=== PATIENT | male | born 1955 | race Caucasian/White ===

== ENCOUNTER → 2018-05-15 | Outpatient (CLI) | payer MEDICARE ==
[2018-05-15 09:56] LABS: Basophils % (A) 1 %; Eosinophils # (A) 0.4 k/uL (0-0.7); Eosinophils % (A) 7 %; HCT 49.8 % (39.0-53.0); HGB 17.1 gm/dL (13.0-17.5); Lymphocytes # (A) 1.5 k/uL (1.0-4.8); Lymphocytes % (A) 27 %; MCH 30.6 pg (25.0-35.0); MCHC 34.4 g/dL (31.0-37.0); MCV 89.1 fL (80.0-100.0); Mean Platelet Volume 6.6; Monocytes # (A) 0.4 k/uL (0-1.0); Monocytes % (A) 7 %; Neutrophils # (A) 3.2 k/uL (1.3-7.7); Neutrophils % (A) 57 %; Platelet Count 272 k/uL (150-450); RBC 5.59 m/uL (4.30-5.90); WBC 5.6 k/uL (3.8-10.6)
[2018-05-15 17:04] LABS: Albumin 4.6 g/dL (3.80-4.90); Albumin/Globulin Ratio 1.92 (1.20-2.10); Anion Gap 6.6 mmol/L (4.00-12.00); Calcium 9.6 mg/dL (8.7-10.3); Carbon Dioxide 29.4 mmol/L (21.6-31.8); Globulin 2.4 g/dL (2.1-3.7); LDL Cholesterol,Calculated 130.4 mg/dL (0.0-131.0); Potassium 4.8 mmol/L (3.5-5.5); Total Bilirubin 0.9 mg/dL (0.3-1.2); VLDL Calculation 34.6 mg/dL (5.00-40.00)
[2018-05-15 17:11] LABS: T4, Free (Free Thyroxine) 1.2 ng/dL (0.80-1.80)
== END | disposition home or self-care (01) ==
LOC: LABWHC1 09:26
PROVIDERS: ATTEND Nurse Practitioner Family
DX: Z00.00 Encounter for general adult medical examination without abnormal findings (principal); Z12.5 Encounter for screening for malignant neoplasm of prostate; Z11.59 Encounter for screening for other viral diseases
CPT/HCPCS: 36415; 80053; 80061; 84153; 84439; 84443; 85025; 86803

== ENCOUNTER → 2020-03-21 | Outpatient (CLI) | payer BC ==
[2020-03-21 22:45] LABS: % Iron Saturation 30.75 (15.00-50.00); C Reactive Protein <0.4 mg/dL (0.0-0.8); Iron 111 ug/dL (65-175); Rheumatoid Factor, Qnt 6 IU/mL (0-15); Total Iron Binding Capacity 361 ug/dL (228-460)
[2020-03-21 22:56] LABS: Uric Acid 5.5 mg/dL (3.7-8.7)
[2020-03-22 00:01] LABS: Folate, Serum 21.1 ng/mL
[2020-03-22 01:01] LABS: Hemoglobin A1C 5.4 % (4.0-6.0)
[2020-03-22 06:14] LABS: Thyroid Peroxidase Antibodies 39.8 U/mL (0.0-60.0)
== END | disposition home or self-care (01) ==
LOC: LABWHC1 09:38
PROVIDERS: ATTEND Family Medicine
DX: Z13.1 Encounter for screening for diabetes mellitus (principal); M25.50 Pain in unspecified joint; R53.83 Other fatigue; E55.9 Vitamin D deficiency, unspecified
CPT/HCPCS: 36415; 82306; 82607; 82728; 82746; 83036; 83540; 83550; 84432; 84550; 85652; 86140; 86376; 86431

== ENCOUNTER → 2020-03-21 | Outpatient (CLI) | payer BC, MEDICARE ==
--- NOTE | 2020-03-21 11:40 | MR ---
MR brain without contrast HISTORY: R 51, headache Multi planar multisequence imaging through the brain No comparisons There is no restricted diffusion. There is no hemorrhage or hydrocephalus. Corpus callosum, pituitary , cervical medullary junction, cerebellopontine angles are normal. Orbits show a symmetric appearance . Brain signal is essentially normal, 3-5 nonspecific foci of hyperintensity on inversion recovery T2 -weighted sequences in the frontal lobes questionable clinical significance. There are normal vascula r flow voids. There is extensive inflammatory change in the frontal sinus, ethmoid air cells, sphenoi d sinus, maxillary sinuses. Mild inflammatory change present in the mastoid air cells on the left. IMPRESSION: Pansinusitis. Nonspecific white matter demyelination could be related to hypertension, mi graine headaches, chronic small vessel ischemic changes.
--- NOTE | 2020-03-21 11:49 | MR ---
EXAMINATION TYPE: MR angio head wo con DATE OF EXAM: 03/21/2020 COMPARISON: EXAMINATION TYPE: MR angio head wo con DATE OF EXAM: 03/21/2020 COMPARISON: MRI brain same date HISTORY: Headache TECHNIQUE: Time of flight images focusing on the [place] were performed without contrast. FINDINGS: Anterior and posterior circulation are patent. There is no evident aneurysm, dissection, or embolus. IMPRESSION: Normal MRA brain
== END | disposition home or self-care (01) ==
LOC: RADMRIMAIN 08:38
PROVIDERS: ATTEND Family Medicine
DX: R90.82 White matter disease, unspecified (principal); J32.4 Chronic pansinusitis; R51 Headache
CPT/HCPCS: 70544; 70551

== ENCOUNTER → 2020-04-09 | Outpatient (CLI) | payer OTHER ==
--- NOTE | 2020-04-19 05:21 | MR ---
EXAMINATION TYPE: MR ankle RT wo con DATE OF EXAM: 04/09/2020 COMPARISON: 04/02/2019 HISTORY: Aftercare following surgery, rt ankle bone spur, instability, osteochondritis Multiplanar multiecho imaging of the right ankle was performed without contrast. There is intact Achilles tendon. Plantar fascia appears normal. Medial and lateral flexor tendons of the ankle appear intact. There is small ankle joint effusion. There is 7 mm focus of increased fluid signal in the medial dome of the talus. There is also a small area of slight increased signal in the lateral dome of the talus. I see no fracture line. There is no evidence of soft tissue mass. There is evidence of previous surgery with screws at the distal fibula. There is narrowing of the anterior an kle joint. There is spurring of the anterior and posterior malleolus. Collateral ligaments are intact . IMPRESSION: There is some osteoarthritic narrowing of the ankle joint with degenerative cyst formation in the med ial dome of the talus. No fracture line seen. Small area of bone bruise and edema in the lateral dome of the talus. There is increase in the degenerative changes in the dome of the talus compared to old exam. There is ankle joint effusion slightly improved compared to old exam. Osteoarthritic narrowing of the ankle j oint space increased compared to old exam.
== END | disposition home or self-care (01) ==
LOC: RADMRIMAIN 06:44
PROVIDERS: ATTEND Orthopaedic Surgery Foot and Ankle Surgery
DX: M19.071 Primary osteoarthritis, right ankle and foot (principal); M93.271 Osteochondritis dissecans, right ankle and joints of right foot; Z47.89 Encounter for other orthopedic aftercare

== ENCOUNTER → 2021-10-07 | Outpatient (CLI) | payer BC ==
--- NOTE | 2021-10-07 10:08 | P.STRESS ---
- Stress Test Note Stress Test Results/Findings: Exam Performed: stress echo exercise Exam Date: 10/07/21 Reason for Exam: Chest tightness Height: 5 ft 10 in Weight: 77.111 kg Protocol: Angus Stage: IV Duration of Exercise: 10 min Resting Heart Rate: 65 Resting Blood Pressure: 110/64 Maximum Achieved Heart Rate: 157 Maximum Achieved Blood Pressure: 161/84 85% PMHR: 133 100% PMHR: 156 METS: Technologist Comment: Stress Test Results/Findings: This is a 66-year-old male being evaluated for cardiac status. Patient has history of chest tightness, palpitations, family history and also smoking history. Stress data: Baseline EKG showed sinus rhythm with normal VT interval and QRS duration. Blood pressure at rest is 110/64 with pulse rate of 65. Patient walked on the Angus protocol for 10 minutes achieving a maximum rate of 157 with a blood pressure 160/84. EKGs taken during and after exercise did not reveal any significant changes from the baseline. Patient did not experience any chest pain. Echo data: Baseline echo images show normal wall motion and thickening. Exercise echo images showed augmentation of wall motion and thickening in all the segments. Final impression: #1. Negative stress test #2. Negative stress echo
--- NOTE | 2021-10-09 08:39 | ECHOS ---
Stress Test Results/Findings: Exam Performed: stress echo exercise Exam Date: 10/07/21 Reason for Exam: Chest tightness Height: 5 ft 10 in Weight: 77.111 kg Protocol: Angus Stage: IV Duration of Exercise: 10 min Resting Heart Rate: 65 Resting Blood Pressure: 110/64 Maximum Achieved Heart Rate: 157 Maximum Achieved Blood Pressure: 161/84 85% PMHR: 133 100% PMHR: 156 METS: Technologist Comment: Stress Test Results/Findings: This is a 66-year-old male being evaluated for cardiac status. Patient has history of chest tightness, palpitations, family history and also smoking history. Stress data: Baseline EKG showed sinus rhythm with normal [place] interval and QRS duration. Blood pressure at rest is 110/64 with pulse rate of 65. Patient walked on the Angus protocol for 10 minutes achieving a maximum rate of 157 with a blood pressure 160/84. EKGs taken during and after exercise did not reveal any significant changes from the baseline. Patient did not experience any chest pain. Echo data: Baseline echo images show normal wall motion and thickening. Exercise echo images showed augmentation of wall motion and thickening in all the segments. Final impression: #1. Negative stress test #2. Negative stress echo MTDD
== END | disposition home or self-care (01) ==
LOC: RADNMMAIN 08:47
PROVIDERS: ATTEND Family Medicine
DX: R07.9 Chest pain, unspecified (principal)
CPT/HCPCS: 93351

== ENCOUNTER 2024-08-08 15:19 | Emergency (ER) | payer BC ==
--- NOTE | 2024-08-08 15:53 | ED ---
General Adult HPI - General Source: patient Mode of arrival: ambulatory Limitations: no limitations <Teresa Su - Last Filed: 08/08/24 15:51> - History of Present Illness Onset/Timin -: days(s) Consistency: constant Improves with: none Worsens with: none Associated Symptoms: cough, shortness of breath, weakness <Giovany Corrigan - Last Filed: 08/21/24 07:41> - General Stated complaint: flu+ 2 days ago Time Seen by Provider: 08/08/24 15:52 - History of Present Illness Initial comments: 69-year-old male presenting with chief complaint of dyspnea. Patient has been short of breath for about 5 days. Diagnosed with the flu 2 days ago. States that he feels like he cannot get a deep breath in. No chest pain. (Teresa Su) - Related Data Home Medications Medication Instructions Recorded Confirmed Albuterol Nebulized [Ventolin 2.5 mg INHALATION RT-Q4H PRN 08/08/24 08/10/24 Nebulized] Albuterol Sulfate [Albuterol 2 puff INHALATION RT-QID PRN 08/08/24 08/10/24 Sulfate Hfa] Fluticasone Propion/Salmeterol 1 puff INHALATION RT-BID 08/08/24 08/10/24 [Advair 250-50 Diskus] Fluticasone/Umeclidin/Vilanter 1 puff INHALATION RT-DAILY 08/10/24 08/10/24 [Trelegy Ellipta 200-62.5-25] Previous Rx's Medication Instructions Recorded predniSONE See Taper PO DAILY #30 tab 08/18/24 Allergies Allergy/AdvReac Type Severity Reaction Status Date / Time tobramycin Allergy Rash/Hives Verified 08/10/24 10:10 Review of Systems ROS Other: All systems not noted in ROS Statement are negative. <Teresa Su - Last Filed: 08/08/24 15:51> ROS Other: All systems not noted in ROS Statement are negative. <Giovany Corrigan - Last Filed: 08/21/24 07:41> ROS Statement: Those systems with pertinent positive or pertinent negative responses have been documented in the HPI. Past Medical History Past Medical History: Asthma, GERD/Reflux Additional Past Medical History / Comment(s): ARTHRITIS,"HEADACHES", SHINGLES 5 YEARS AGO,HEMORRHOIDS, HAD PNE VACINE LESS THEN 5 YEARS AGO NOT SURE OF DATE History of Any Multi-Drug Resistant Organisms: None Reported Past Surgical History: Adenoidectomy, Tonsillectomy Additional Past Surgical History / Comment(s): X4 SINUS SX, BLEPHEROPLASTY Past Anesthesia/Blood Transfusion Reactions: No Reported Reaction Past Psychological History: No Psychological Hx Reported Past Alcohol Use History: Rare Additional Past Alcohol Use History / Comment(s): SMOKE FROM AGE 17 TO AGE 19 Past Drug Use History: None Reported - Past Family History Father Family Medical History: Blood Disorder Additional Family Medical History / Comment(s): HEMOCHROMATOSIS <Teresa Su - Last Filed: 08/08/24 15:51> General Exam <Teresa Su - Last Filed: 08/08/24 15:51> Limitations: no limitations General appearance: alert, in no apparent distress Head exam: Present: atraumatic, normocephalic Eye exam: Present: normal appearance. Absent: scleral icterus, conjunctival injection ENT exam: Present: normal oropharynx, mucous membranes dry Neck exam: Present: normal inspection Respiratory exam: Present: wheezes, rales (Left base). Absent: respiratory distress, rhonchi, stridor, accessory muscle use Cardiovascular Exam: Present: regular rate, normal rhythm, normal heart sounds. Absent: systolic murmur, diastolic murmur, rubs, gallop GI/Abdominal exam: Present: soft. Absent: distended, tenderness, guarding, rebound, rigid, mass Extremities exam: Present: normal inspection, normal capillary refill. Absent: pedal edema, calf tenderness Back exam: Present: normal inspection. Absent: CVA tenderness (R), CVA tenderness (L) Neurological exam: Present: alert Skin exam: Present: warm, dry, intact, normal color. Absent: rash <Giovany Corrigan - Last Filed: 08/21/24 07:41> - General Exam Comments Initial Comments: Visual Physical Exam Vital signs reviewed General: Well-appearing, nontoxic, no acute distress. Head: Normocephalic, atraumatic Eyes: PERRLA, EOMI ENT: Airway patent Chest: Nonlabored breathing Skin: No visual rash, normal skin tone Neuro: Alert and oriented 3 Musculoskeletal: No gross abnormalities (Teresa Su) Course Vital Signs 08/08/24 08/08/24 08/08/24 15:52 16:17 17:39 Temperature 99.7 F H Pulse Rate 101 H 92 Respiratory 20 Rate Blood Pressure 137/69 O2 Sat by Pulse 91 L 94 L Oximetry 08/08/24 08/08/24 08/08/24 17:49 20:00 20:07 Temperature Pulse Rate 96 92 92 Respiratory 18 Rate Blood Pressure 119/76 O2 Sat by Pulse 98 Oximetry 08/08/24 08/08/24 20:16 22:20 Temperature Pulse Rate 88 89 Respiratory 18 Rate Blood Pressure 115/73 O2 Sat by Pulse 95 Oximetry EKG Findings - EKG Results: EKG: interpreted by ERMD, sinus rhythm (Rate 91 bpm), normal axis, normal QRS - Blocks, [place], Hypertrophy, ST Abn: Repolarization changes or abnormalities: nonspecific abnormality, ST segment, and/or T wave <Giovany Corrigan - Last Filed: 08/21/24 07:41> Medical Decision Making <Teresa Su - Last Filed: 08/08/24 15:51> - Lab Data Result diagrams: 08/08/24 16:11 08/08/24 16:11 <Giovany Corrigan - Last Filed: 08/21/24 07:41> - Medical Decision Making I performed the quick note portion of this visit, electronically signed Teresa Su PA-C (Teresa Su) The patient had chest x-ray that I interpreted as showing possible small infiltrate, no pneumothorax or congestive heart failure Was pt. sent in by a medical professional or institution ([facility], GRAPHIC DESIGN SPECIALIST, urgent care, hospital, or retirement...) When possible be specific @ -[No] Did you speak to anyone other than the patient for history (EMS, parent, family, police, friend...)? What history was obtained from this source @ -[No] Did you review nursing and triage notes (agree or disagree)? Why? @ -[I reviewed and agree with nursing and triage notes] Were old charts reviewed (outside hosp., previous admission, EMS record, old EKG, old radiological studies, urgent care reports/EKG's, retirement records)? Report findings @ -[No old charts were reviewed] Differential Diagnosis (chest pain, altered mental status, abdominal pain women, abdominal pain men, vaginal bleeding, weakness, fever, dyspnea, syncope, headache, dizziness, GI bleed, back pain, seizure, CVA, palpatations, mental health, musculoskeletal)? @ -[Differential Dyspnea: Coronary syndrome, arrhythmia, tamponade, asthma, COPD, pulmonary embolism, pneumonia, pneumothorax, pulmonary effusion, anaphylaxis, diabetic ketoacidosis, flailed chest, pulmonary contusion, diaphragmatic rupture, anemia, neuromuscular, this is not meant to be an all-inclusive list. EKG interpreted by me (3pts min.). @ -[I interpreted as above] X-rays interpreted by me (1pt min.). @ -[None done] CT interpreted by me (1pt min.). @ -[None done] U/S interpreted by me (1pt. min.). @ -[None done] What testing was considered but not performed or refused? (CT, X-rays, U/S, labs)? Why? @ -[None] What meds were considered but not given or refused? Why? @ -[None] Did you discuss the management of the patient with other professionals (professionals i.e. , PA, GRAPHIC DESIGN SPECIALIST, lab, RT, psych nurse, social science manager, shredding specialist, teacher, global chief experience officer, transplant case manager)? Give summary @ -[No] Was smoking cessation discussed for >3mins.? @ -[No] Was critical care preformed (if so, how long)? @ -[No] Were there social determinants of health that impacted care today? How? (Homelessness, low income, unemployed, alcoholism, drug addiction, transportation, low edu. Level, literacy, decrease access to med. care, senior care, rehab)? @ -[No] Was there de-escalation of care discussed even if they declined (Discuss DNR or withdrawal of care, Hospice)? DNR status @ -[No] What co-morbidities impacted this encounter? (DM, HTN, Smoking, COPD, CAD, Cancer, CVA, ARF, Chemo, Hep., AIDS, mental health diagnosis, sleep apnea, morbid obesity)? @ -[Eval asthma Was patient admitted / discharged? Hospital course, mention meds given and route, prescriptions, significant lab abnormalities, going to OR and other pertinent info. @ -[Patient is a 69-year-old man with history of asthma was diagnosed with influenza approximately 2 days ago and states he was feeling worse. On evaluati on patient suspected to have small pneumonia though probably viral in nature patient given course of antibiotics given his underlying asthma. Patient given multiple treatments and was offered admission but states he is feeling better and will try outpatient course. Discussed appropriate further care and follow- up as well as return parameters. Undiagnosed new problem with uncertain prognosis? @ -[No] Drug Therapy requiring intensive monitoring for toxicity (Heparin, Nitro, Insulin, Cardizem)? @ -[No] Were any procedures done? @ -[No] Diagnosis/symptom? @ -Acute asthma exacerbation Possible pneumonia Influenza infection Acute, or Chronic, or Acute on Chronic? @ -[Acute Uncomplicated (without systemic symptoms) or Complicated (systemic symptoms)? @ -[Complicated by dyspnea Side effects of treatment? @ -[No] Exacerbation, Progression, or Severe Exacerbation? @ -[No] Poses a threat to life or bodily function? How? (Chest pain, [place], [place], pneumonia, PE, COPD, DKA, ARF, appy, cholecystitis, CVA, Diverticulitis, Homicidal, Suicidal, threat to staff... and all critical care pts) @ -[Yes, requires close follow-up as there is risk of worsening pulmonary function All treatments are based on ideal body weight as in ED triage (Giovany Corrigan) - Lab Data Lab Results 08/08/24 08/08/24 08/08/24 Range/Units 16:11 16:11 16:11 WBC 3.9 (3.8-10.6) k/uL RBC 5.20 (4.30-5.90) m/uL Hgb 15.3 (13.0-17.5) gm/dL Hct 45.8 (39.0-53.0) % MCV 88.2 (80.0-100.0) fL MCH 29.5 (25.0-35.0) pg MCHC 33.5 (31.0-37.0) g/dL RDW 12.1 (11.5-15.5) % Plt Count 182 (150-450) k/uL MPV 7.2 Neutrophils % 83 % Lymphocytes % 12 % Monocytes % 3 % Eosinophils % 0 % Basophils % 0 % Neutrophils # 3.2 (1.3-7.7) k/uL Lymphocytes # 0.5 L (1.0-4.8) k/uL Monocytes # 0.1 (0-1.0) k/uL Eosinophils # 0.0 (0-0.7) k/uL Basophils # 0.0 (0-0.2) k/uL PT 10.7 (10.0-12.5) sec INR 1.0 (<1.2) APTT 28.2 (22.0-30.0) sec D-Dimer (<0.60) mg/L FEU Sodium 132 L (137-145) mmol/L Potassium 3.9 (3.5-5.1) mmol/L Chloride 95 L (98-107) mmol/L Carbon Dioxide 23 (22-30) mmol/L Anion Gap 14 mmol/L BUN 23 H (9-20) mg/dL Creatinine 1.03 (0.66-1.25) mg/dL Est GFR (CKD-EPI)AfAm 87 (>60 ml/min/1.73 sqM) Est GFR (CKD-EPI)NonAf 75 (>60 ml/min/1.73 sqM) Glucose 92 (74-99) mg/dL Plasma Lactic Acid Jaime (0.7-2.0) mmol/L Calcium 8.2 L (8.4-10.2) mg/dL Magnesium 2.1 (1.6-2.3) mg/dL Total Bilirubin 0.8 (0.2-1.3) mg/dL AST 57 (17-59) U/L ALT 33 (4-49) U/L Alkaline Phosphatase 63 (38-126) U/L Troponin I (0.000-0.034) ng/mL Total Protein 6.4 (6.3-8.2) g/dL Albumin 3.7 (3.5-5.0) g/dL Procalcitonin (0.02-0.50) ng/mL Urine Color Urine Appearance (Clear) Urine pH (5.0-8.0) Ur Specific [place] (1.001-1.035) Urine Protein (Negative) Urine Glucose (UA) (Negative) Urine Ketones (Negative) Urine Blood (Negative) Urine Nitrite (Negative) Urine Bilirubin (Negative) Urine Urobilinogen (<2.0) mg/dL Ur Leukocyte Esterase (Negative) Urine RBC (0-5) /hpf Urine WBC (0-5) /hpf Ur Squamous Epith Cells (0-4) /hpf Urine Mucus (None) /hpf 08/08/24 08/08/24 08/08/24 Range/Units 16:11 16:11 16:11 WBC (3.8-10.6) k/uL RBC (4.30-5.90) m/uL Hgb (13.0-17.5) gm/dL Hct (39.0-53.0) % MCV (80.0-100.0) fL MCH (25.0-35.0) pg MCHC (31.0-37.0) g/dL RDW (11.5-15.5) % Plt Count (150-450) k/uL MPV Neutrophils % % Lymphocytes % % Monocytes % % Eosinophils % % Basophils % % Neutrophils # (1.3-7.7) k/uL Lymphocytes # (1.0-4.8) k/uL Monocytes # (0-1.0) k/uL Eosinophils # (0-0.7) k/uL Basophils # (0-0.2) k/uL PT (10.0-12.5) sec INR (<1.2) APTT (22.0-30.0) sec D-Dimer (<0.60) mg/L FEU Sodium (137-145) mmol/L Potassium (3.5-5.1) mmol/L Chloride (98-107) mmol/L Carbon Dioxide (22-30) mmol/L Anion Gap mmol/L BUN (9-20) mg/dL Creatinine (0.66-1.25) mg/dL Est GFR (CKD-EPI)AfAm (>60 ml/min/1.73 sqM) Est GFR (CKD-EPI)NonAf (>60 ml/min/1.73 sqM) Glucose (74-99) mg/dL Plasma Lactic Acid Jaime 1.6 (0.7-2.0) mmol/L Calcium (8.4-10.2) mg/dL Magnesium (1.6-2.3) mg/dL Total Bilirubin (0.2-1.3) mg/dL AST (17-59) U/L ALT (4-49) U/L Alkaline Phosphatase (38-126) U/L Troponin I <0.012 (0.000-0.034) ng/mL Total Protein (6.3-8.2) g/dL Albumin (3.5-5.0) g/dL Procalcitonin 0.52 H (0.02-0.50) ng/mL Urine Color Urine Appearance (Clear) Urine pH (5.0-8.0) Ur Specific [place] (1.001-1.035) Urine Protein (Negative) Urine Glucose (UA) (Negative) Urine Ketones (Negative) Urine Blood (Negative) Urine Nitrite (Negative) Urine Bilirubin (Negative) Urine Urobilinogen (<2.0) mg/dL Ur Leukocyte Esterase (Negative) Urine RBC (0-5) /hpf Urine WBC (0-5) /hpf Ur Squamous Epith Cells (0-4) /hpf Urine Mucus (None) /hpf 08/08/24 08/08/24 Range/Units 16:11 17:42 WBC (3.8-10.6) k/uL RBC (4.30-5.90) m/uL Hgb (13.0-17.5) gm/dL Hct (39.0-53.0) % MCV (80.0-100.0) fL MCH (25.0-35.0) pg MCHC (31.0-37.0) g/dL RDW (11.5-15.5) % Plt Count (150-450) k/uL MPV Neutrophils % % Lymphocytes % % Monocytes % % Eosinophils % % Basophils % % Neutrophils # (1.3-7.7) k/uL Lymphocytes # (1.0-4.8) k/uL Monocytes # (0-1.0) k/uL Eosinophils # (0-0.7) k/uL Basophils # (0-0.2) k/uL PT (10.0-12.5) sec INR (<1.2) APTT (22.0-30.0) sec D-Dimer 0.50 (<0.60) mg/L FEU Sodium (137-145) mmol/L Potassium (3.5-5.1) mmol/L Chloride (98-107) mmol/L Carbon Dioxide (22-30) mmol/L Anion Gap mmol/L BUN (9-20) mg/dL Creatinine (0.66-1.25) mg/dL Est GFR (CKD-EPI)AfAm (>60 ml/min/1.73 sqM) Est GFR (CKD-EPI)NonAf (>60 ml/min/1.73 sqM) Glucose (74-99) mg/dL Plasma Lactic Acid Jaime (0.7-2.0) mmol/L Calcium (8.4-10.2) mg/dL Magnesium (1.6-2.3) mg/dL Total Bilirubin (0.2-1.3) mg/dL AST (17-59) U/L ALT (4-49) U/L Alkaline Phosphatase (38-126) U/L Troponin I (0.000-0.034) ng/mL Total Protein (6.3-8.2) g/dL Albumin (3.5-5.0) g/dL Procalcitonin (0.02-0.50) ng/mL Urine Color Yellow Urine Appearance Clear (Clear) Urine pH 6.0 (5.0-8.0) Ur Specific [place] 1.024 (1.001-1.035) Urine Protein 1+ H (Negative) Urine Glucose (UA) Negative (Negative) Urine Ketones 3+ H (Negative) Urine Blood Trace H (Negative) Urine Nitrite Negative (Negative) Urine Bilirubin Negative (Negative) Urine Urobilinogen <2.0 (<2.0) mg/dL Ur Leukocyte Esterase Negative (Negative) Urine RBC 1 (0-5) /hpf Urine WBC 1 (0-5) /hpf Ur Squamous Epith Cells 1 (0-4) /hpf Urine Mucus Rare H (None) /hpf Disposition <Teresa Su - Last Filed: 08/08/24 15:51> Is patient prescribed a controlled substance at d/c from ED?: No <Giovany Corrigan - Last Filed: 08/21/24 07:41> Clinical Impression: Pneumonia Disposition: HOME SELF-CARE Condition: Good Instructions (If sedation given, give patient instructions): Pneumonia (ED) Referrals: Quang Sanders MD [Primary Care Provider] - 1-2 days
[2024-08-08 15:55] VITALS: TEMP 99.7
[2024-08-08 16:29] LABS: Basophils % (A) 0 %; Eosinophils % (A) 0 %; HCT 45.8 % (39.0-53.0); HGB 15.3 gm/dL (13.0-17.5); Lymphocytes # (A) 0.5 k/uL (1.0-4.8); Lymphocytes % (A) 12 %; MCH 29.5 pg (25.0-35.0); MCHC 33.5 g/dL (31.0-37.0); MCV 88.2 fL (80.0-100.0); Mean Platelet Volume 7.2; Monocytes # (A) 0.1 k/uL (0-1.0); Monocytes % (A) 3 %; Neutrophils # (A) 3.2 k/uL (1.3-7.7); Neutrophils % (A) 83 %; Platelet Count 182 k/uL (150-450); RDW 12.1 % (11.5-15.5); WBC 3.9 k/uL (3.8-10.6)
[2024-08-08 16:44] LABS: ALT 33 U/L (4-49); AST 57 U/L (17-59); African American GFR (CKD) 87 (>60 ml/min/1.73 sqM); Albumin 3.7 g/dL (3.5-5.0); Alkaline Phosphatase 63 U/L (38-126); Anion Gap 14 mmol/L; Blood Urea Nitrogen 23 mg/dL (9-20); Calcium 8.2 mg/dL (8.4-10.2); Carbon Dioxide 23 mmol/L (22-30); Chloride 95 mmol/L (98-107); Glucose 92 mg/dL (74-99); Magnesium 2.1 mg/dL (1.6-2.3); Non-African American GFR(CKD) 75 (>60 ml/min/1.73 sqM); Potassium 3.9 mmol/L (3.5-5.1); Sodium 132 mmol/L (137-145); Total Bilirubin 0.8 mg/dL (0.2-1.3); Total Protein 6.4 g/dL (6.3-8.2)
[2024-08-08 17:07] LABS: Partial Thromboplastin Time 28.2 sec (22.0-30.0); Prothrombin Time 10.7 sec (10.0-12.5)
[2024-08-08] MEDS: ACETAMINOPHEN TAB 325 MG TAB PO STA (17:34)
[2024-08-08] MEDS: predniSONE 20 MG TAB PO STA (17:34)
[2024-08-08] MEDS: SODIUM CHLORIDE 0.9% 1,000 ML IV ONE ×2 (17:35→19:42)
[2024-08-08] MEDS: IPRATROPIUM-ALBUTEROL 3 ML NEB INHALATION STA (17:38)
[2024-08-08] MEDS: ALBUTEROL NEBULIZED 2.5 MG/3 ML INHALATION STA ×2 (17:38→20:07)
[2024-08-08 17:56] LABS: Appearance,Urine Clear (Clear); Bilirubin,Urine Negative (Negative); Blood,Urine Trace (Negative); Color,Urine Yellow; Glucose,Urine (UA) Negative (Negative); Ketones,Urine 3+ (Negative); Leukocyte Esterase,Urine Negative (Negative); Mucus,Urine Rare /hpf; Nitrite,Urine Negative (Negative); Protein,Urine 1+ (Negative); RBC,Urine 1 /hpf (0-5); Specific Gravity,Urine 1.024 (1.001-1.035); Squamous Epithelial Cell,Urine 1 /hpf (0-4); Urobilinogen,Urine <2.0 mg/dL (<2.0); WBC,Urine 1 /hpf (0-5)
[2024-08-08] MEDS: AZITHROMYCIN 500 MG TAB PO STA (18:26)
--- NOTE | 2024-08-08 18:48 | XR ---
EXAMINATION TYPE: XR chest 2V DATE OF EXAM: 08/08/2024 5:24 PM COMPARISON: None. CLINICAL INDICATION: Male, 69 years old with history of difficulty breathing, TECHNIQUE: XR chest 2V view(s) obtained. FINDINGS: The heart size is normal. The pulmonary vasculature is normal. Mild infiltrates along the left base. Correlate for subsegmental atelectasis. Early pneumonia is not excluded A suspicious consolidation is not identified.. IMPRESSION: 1. Small infiltrate along the posterior left diaphragm. Atelectasis is favored. Developing pneumonia could be considered. Follow-up recommended [facility], , 08/08/2024 6:45 PM
[2024-08-08 20:38] VITALS: RESP 18
[2024-08-08 22:21] VITALS: BP 115/73; PULSE 89
== END 2024-08-08 22:21 | disposition home or self-care (01) ==
LOC: EC 15:19
DX: J18.9 Pneumonia, unspecified organism (principal); J45.901 Unspecified asthma with (acute) exacerbation; Z88.1 Allergy status to other antibiotic agents
CPT/HCPCS: 36415; 94640 ×2; 93005; 85379; 80053; 83605; 83735; 84484; 85025; 85610; 85730; 81001; 84145; 71046; 99285; 96365; 96361; J0696; J7512

== ENCOUNTER 2024-08-10 07:39 | Inpatient (IN) | payer BC ==
[2024-08-10] MEDS ORDERED: IPRATROPIUM-ALBUTEROL 3 ML NEB INHALATION STA (07:52)
--- NOTE | 2024-08-10 07:54 | ED ---
General Adult HPI - General Chief complaint: Shortness of Breath Stated complaint: JACKIE Time Seen by Provider: 08/10/24 07:39 Source: patient, RN notes reviewed Mode of arrival: ambulatory Limitations: no limitations - History of Present Illness Initial comments: Patient is a 69-year-old male present to the emergency department with concerns with difficulty breathing. Onset of symptoms was around a week ago. Patient diagnosed with flu +4 days ago. Patient was in the emergency department 2 days ago with consideration for admission however no beds were available and patient left. Patient was also diagnosed with pneumonia at that time. Patient states dyspnea has worsened last night. Patient does have history of asthma. Oxygen on pulse ox at home was in the 80s. Patient had a hard time breathing last night and did not sleep well. Patient does have dry nonproductive cough. Patient had a fever several days ago however none since. - Related Data Home Medications Medication Instructions Recorded Confirmed Albuterol Nebulized [Ventolin 2.5 mg INHALATION RT-Q4H PRN 08/08/24 08/08/24 Nebulized] Albuterol Sulfate [Albuterol 2 puff INHALATION RT-QID PRN 08/08/24 08/08/24 Sulfate Hfa] Fluticasone Propion/Salmeterol 1 puff INHALATION RT-BID 08/08/24 08/08/24 [Advair 250-50 Diskus] Previous Rx's Medication Instructions Recorded Azithromycin [Zithromax] 0 mg PO DIRECTED #6 tab 08/08/24 predniSONE [Deltasone] 20 mg PO BID #8 tab 08/08/24 Allergies Allergy/AdvReac Type Severity Reaction Status Date / Time tobramycin Allergy Rash/Hives Verified 08/10/24 07:48 Review of Systems ROS Statement: Those systems with pertinent positive or pertinent negative responses have been documented in the HPI. ROS Other: All systems not noted in ROS Statement are negative. Constitutional: Reports: as per HPI, fever Eyes: Denies: eye pain ENT: Denies: ear pain Respiratory: Reports: as per HPI, cough, dyspnea Cardiovascular: Denies: chest pain Endocrine: Reports: fatigue Gastrointestinal: Denies: abdominal pain Musculoskeletal: Denies: back pain Past Medical History Past Medical History: Asthma, GERD/Reflux Additional Past Medical History / Comment(s): ARTHRITIS,"HEADACHES", SHINGLES 5 YEARS AGO,HEMORRHOIDS, HAD PNE VACINE LESS THEN 5 YEARS AGO NOT SURE OF DATE History of Any Multi-Drug Resistant Organisms: None Reported Past Surgical History: Adenoidectomy, Tonsillectomy Additional Past Surgical History / Comment(s): X4 SINUS SX, BLEPHEROPLASTY Past Anesthesia/Blood Transfusion Reactions: No Reported Reaction Past Psychological History: No Psychological Hx Reported Smoking Status: Never smoker Past Alcohol Use History: Rare Past Drug Use History: None Reported - Past Family History Father Family Medical History: Blood Disorder Additional Family Medical History / Comment(s): HEMOCHROMATOSIS General Exam Limitations: no limitations General appearance: alert, in no apparent distress Head exam: Present: normocephalic Eye exam: Present: normal appearance Neck exam: Present: normal inspection Respiratory exam: Present: normal lung sounds bilaterally Cardiovascular Exam: Present: regular rate, normal rhythm GI/Abdominal exam: Present: soft. Absent: tenderness Extremities exam: Present: normal inspection. Absent: pedal edema, calf tenderness Neurological exam: Present: alert Psychiatric exam: Present: normal affect, normal mood Skin exam: Present: normal color Course Vital Signs 08/10/24 07:44 Temperature 97.5 F L Pulse Rate 86 Respiratory 20 Rate Blood Pressure 133/77 O2 Sat by Pulse 91 L Oximetry EKG Findings - EKG Results: EKG: interpreted by ERMD, sinus rhythm, normal axis, normal QRS, normal ST/T Medical Decision Making - Medical Decision Making Was pt. sent in by a medical professional or institution (, PA, MANAGER USER EXPERIENCE, urgent care, hospital, or [facility]...) When possible be specific @ -No Did you speak to anyone other than the patient for history (EMS, parent, family, police, friend...)? What history was obtained from this source @ - is present and helps provide history including onset of symptoms Did you review nursing and triage notes (agree or disagree)? Why? @ -I reviewed and agree with nursing and triage notes Were old charts reviewed (outside hosp., previous admission, EMS record, old EKG, old radiological studies, urgent care reports/EKG's, [facility] records)? Report findings @ -Previous chest x-ray reviewed however x-ray today appears worse Differential Diagnosis (chest pain, altered mental status, abdominal pain women, abdominal pain men, vaginal bleeding, weakness, fever, dyspnea, syncope, headache, dizziness, GI bleed, back pain, seizure, CVA, palpatations, mental health, musculoskeletal)? @ -Differential Dyspnea: Coronary syndrome, arrhythmia, tamponade, asthma, COPD, pulmonary embolism, pneumonia, pneumothorax, pulmonary effusion, anaphylaxis, diabetic ketoacidosis, flailed chest, pulmonary contusion, diaphragmatic rupture, anemia, neuromuscular, this is not meant to be an all-inclusive list. EKG interpreted by me (3pts min.). @ -As above X-rays interpreted by me (1pt min.). @ -Chest x-ray shows infiltrates right mid and left lower CT interpreted by me (1pt min.). @ -None done U/S interpreted by me (1pt. min.). @ -None done What testing was considered but not performed or refused? (CT, X-rays, U/S, labs)? Why? @ -None What meds were considered but not given or refused? Why? @ -None Did you discuss the management of the patient with other professionals (professionals i.e. , PA, MANAGER USER EXPERIENCE, lab, RT, psych nurse, social media coordinator, results technician, teacher, military police officer, director of casework services)? Give summary @ -Case was discussed with Dr. Yao with [facility] who will admit covering Dr. Sanders Was smoking cessation discussed for >3mins.? @ -No Was critical care preformed (if so, how long)? @ -No Were there social determinants of health that impacted care today? How? (Homelessness, low income, unemployed, alcoholism, drug addiction, transportation, low edu. Level, literacy, decrease access to med. care, long term, rehab)? @ -No Was there de-escalation of care discussed even if they declined (Discuss DNR or withdrawal of care, Hospice)? DNR status @ -No What co-morbidities impacted this encounter? (DM, HTN, Smoking, COPD, CAD, Cancer, CVA, ARF, Chemo, Hep., AIDS, mental health diagnosis, sleep apnea, morb id obesity)? @ -History of asthma Was patient admitted / discharged? Hospital course, mention meds given and route, prescriptions, significant lab abnormalities, going to OR and other pertinent info. @ -Patient presents with cough and dyspnea positive influenza. Patient has worsening chest x-ray and hypoxia. Patient to be admitted. Patient reevaluated and updated. Admission orders written. Patient has pneumonia and unclear if this could be limited to influenza or additional bacterial pneumonia. Blood culture lactic acid and IV antibiotics all started. Concern for pneumonia diagnosed at 820 AM. Undiagnosed new problem with uncertain prognosis? @ -No Drug Therapy requiring intensive monitoring for toxicity (Heparin, Nitro, Insulin, Cardizem)? @ -No Were any procedures done? @ -No Diagnosis/symptom? @ -Influenza, pneumonia Acute, or Chronic, or Acute on Chronic? @ -Acute, acute Uncomplicated (without systemic symptoms) or Complicated (systemic symptoms)? @ -Complicated with hypoxia requiring oxygen Side effects of treatment? @ -No Exacerbation, Progression, or Severe Exacerbation? @ -No Poses a threat to life or bodily function? How? (Chest pain, USA, DC, pneumonia, PE, COPD, DKA, ARF, appy, cholecystitis, CVA, Diverticulitis, Homicidal, Suicidal, threat to staff... and all critical care pts) @ -Threat to pulmonary function - Lab Data Result diagrams: 08/10/24 08:11 08/10/24 08:11 Lab Results 08/10/24 08/10/24 08/10/24 Range/Units 08:11 08:11 08:11 WBC 4.4 (3.8-10.6) k/uL RBC 4.73 (4.30-5.90) m/uL Hgb 14.0 (13.0-17.5) gm/dL Hct 41.7 (39.0-53.0) % MCV 88.3 (80.0-100.0) fL MCH 29.6 (25.0-35.0) pg MCHC 33.6 (31.0-37.0) g/dL RDW 12.0 (11.5-15.5) % Plt Count 180 (150-450) k/uL MPV 7.3 Neutrophils % 87 % Lymphocytes % 7 % Monocytes % 3 % Eosinophils % 0 % Basophils % 0 % Neutrophils # 3.8 (1.3-7.7) k/uL Lymphocytes # 0.3 L (1.0-4.8) k/uL Monocytes # 0.2 (0-1.0) k/uL Eosinophils # 0.0 (0-0.7) k/uL Basophils # 0.0 (0-0.2) k/uL PT 10.6 (10.0-12.5) sec INR 0.9 (<1.2) APTT 25.2 (22.0-30.0) sec Sodium 135 L (137-145) mmol/L Potassium 4.3 (3.5-5.1) mmol/L Chloride 103 (98-107) mmol/L Carbon Dioxide 23 (22-30) mmol/L Anion Gap 9 mmol/L BUN 18 (9-20) mg/dL Creatinine 0.78 (0.66-1.25) mg/dL Est GFR (CKD-EPI)AfAm >90 (>60 ml/min/1.73 sqM) Est GFR (CKD-EPI)NonAf >90 (>60 ml/min/1.73 sqM) Glucose 179 H (74-99) mg/dL Plasma Lactic Acid Jaime (0.7-2.0) mmol/L Calcium 8.2 L (8.4-10.2) mg/dL Magnesium 2.3 (1.6-2.3) mg/dL Total Bilirubin 0.7 (0.2-1.3) mg/dL AST 63 H (17-59) U/L ALT 31 (4-49) U/L Alkaline Phosphatase 49 (38-126) U/L Total Protein 6.2 L (6.3-8.2) g/dL Albumin 3.5 (3.5-5.0) g/dL 08/10/24 Range/Units 08:11 WBC (3.8-10.6) k/uL RBC (4.30-5.90) m/uL Hgb (13.0-17.5) gm/dL Hct (39.0-53.0) % MCV (80.0-100.0) fL MCH (25.0-35.0) pg MCHC (31.0-37.0) g/dL RDW (11.5-15.5) % Plt Count (150-450) k/uL MPV Neutrophils % % Lymphocytes % % Monocytes % % Eosinophils % % Basophils % % Neutrophils # (1.3-7.7) k/uL Lymphocytes # (1.0-4.8) k/uL Monocytes # (0-1.0) k/uL Eosinophils # (0-0.7) k/uL Basophils # (0-0.2) k/uL PT (10.0-12.5) sec INR (<1.2) APTT (22.0-30.0) sec Sodium (137-145) mmol/L Potassium (3.5-5.1) mmol/L Chloride (98-107) mmol/L Carbon Dioxide (22-30) mmol/L Anion Gap mmol/L BUN (9-20) mg/dL Creatinine (0.66-1.25) mg/dL Est GFR (CKD-EPI)AfAm (>60 ml/min/1.73 sqM) Est GFR (CKD-EPI)NonAf (>60 ml/min/1.73 sqM) Glucose (74-99) mg/dL Plasma Lactic Acid Jaime 2.0 (0.7-2.0) mmol/L Calcium (8.4-10.2) mg/dL Magnesium (1.6-2.3) mg/dL Total Bilirubin (0.2-1.3) mg/dL AST (17-59) U/L ALT (4-49) U/L Alkaline Phosphatase (38-126) U/L Total Protein (6.3-8.2) g/dL Albumin (3.5-5.0) g/dL Disposition Clinical Impression: Pneumonia, Influenza Disposition: ADMITTED IP TO THIS HOSP Condition: Serious Is patient prescribed a controlled substance at d/c from ED?: No Referrals: Quang Sanders MD [Primary Care Provider] - 1-2 days Time of Disposition: 09:47
[2024-08-10 08:28] LABS: Basophils % (A) 0 %; Eosinophils % (A) 0 %; HCT 41.7 % (39.0-53.0); Lymphocytes # (A) 0.3 k/uL (1.0-4.8); Lymphocytes % (A) 7 %; MCH 29.6 pg (25.0-35.0); MCHC 33.6 g/dL (31.0-37.0); MCV 88.3 fL (80.0-100.0); Mean Platelet Volume 7.3; Monocytes # (A) 0.2 k/uL (0-1.0); Monocytes % (A) 3 %; Neutrophils # (A) 3.8 k/uL (1.3-7.7); Neutrophils % (A) 87 %; Platelet Count 180 k/uL (150-450); RBC 4.73 m/uL (4.30-5.90); WBC 4.4 k/uL (3.8-10.6)
--- NOTE | 2024-08-10 08:31 | XR ---
EXAMINATION TYPE: XR chest 2V DATE OF EXAM: 08/10/2024 8:23 AM COMPARISON: 08/08/2024 CLINICAL INDICATION: Male, 69 years old with history of difficulty breathing, history of pneumonia TECHNIQUE: XR chest 2V view(s) obtained. FINDINGS: The heart size is normal. The pulmonary vasculature is normal. Mild nonspecific increase areas lung markings are present in the left lower and right mid lung. Corre late for atelectasis or pneumonia. Findings are worsening over the interval. IMPRESSION: 1. Left lower lobe and right perihilar infiltrates. Correlate for atelectasis or pneumonia. [facility], , 08/10/2024 8:28 AM
[2024-08-10 08:38] LABS: ALT 31 U/L (4-49); AST 63 U/L (17-59); African American GFR (CKD) >90 (>60 ml/min/1.73 sqM); Albumin 3.5 g/dL (3.5-5.0); Alkaline Phosphatase 49 U/L (38-126); Anion Gap 9 mmol/L; Blood Urea Nitrogen 18 mg/dL (9-20); Calcium 8.2 mg/dL (8.4-10.2); Carbon Dioxide 23 mmol/L (22-30); Chloride 103 mmol/L (98-107); Glucose 179 mg/dL (74-99); Magnesium 2.3 mg/dL (1.6-2.3); Non-African American GFR(CKD) >90 (>60 ml/min/1.73 sqM); Potassium 4.3 mmol/L (3.5-5.1); Sodium 135 mmol/L (137-145); Total Bilirubin 0.7 mg/dL (0.2-1.3); Total Protein 6.2 g/dL (6.3-8.2)
[2024-08-10 09:04] LABS: INR 0.9 (<1.2); Partial Thromboplastin Time 25.2 sec (22.0-30.0); Prothrombin Time 10.6 sec (10.0-12.5)
[2024-08-10] MEDS: OSELTAMIVIR 75 MG CAP PO SCH (09:42)
[2024-08-10] MEDS: cefTRIAXone IN SWFI 1,000 MG/10 ML SYRINGE IVP STA (09:42)
[2024-08-10] MEDS ORDERED: IPRATROPIUM-ALBUTEROL 3 ML NEB INHALATION PRN (09:47)
[2024-08-10] MEDS ORDERED: PNEUMONIA PROTOCOL UTILIZED 1 EACH MISC PO PRN (09:47)
[2024-08-10 10:22] LABS: Influenza A Detected (Not Detectd); Influenza B Not Detected (Not Detectd); RSV Not Detected (Not Detectd)
[2024-08-10] MEDS: AZITHROMYCIN 500 MG in SODIUM CHLORIDE 0.9% 250 ML IVPB STA (10:51)
[2024-08-10] MEDS: SODIUM CHLORIDE 0.9% 1,000 ML IV SCH (10:51)
[2024-08-10] MEDS: ALBUTEROL HFA INHALER INHALATION STA (10:58)
--- NOTE | 2024-08-10 13:55 | P.HPIM ---
History of Present Illness H&P Date: 08/10/24 patient is a 69-year-old male with past medical history of asthma, GERD. Patient was diagnosed with flu 4 days ago. He reported to the ER 2 days ago however no beds were available and he went home on prednisone and Zithromax,, has been having progressively worsening shortness of breath, his home pulse ox showed that he was in 80s, he has associated nonproductive, had fever several days ago. He denies wheezing, his asthma is generally well-controlled, he is only on maintenance inhaler, has not used his rescue inhaler in a month. ED course: On arrival temperature 97.5, BP stable 133/97, 91 on room air, heart rate in 80s. Lab work showed no leukocytosis, stable normal hemoglobin and platelet count, sodium 135, potassium 4.3, creatinine 0.78, GFR normal, glucose elevated 179, lactate 2.0, AST elevated 63, normal ALT 31 Chest x-ray showed left lower lobe and right perihilar infiltrates, correlate for atelectasis or pneumonia. EKG showed sinus mechanism with nonspecific T wave abnormalities. QTc 394. denies smoking history Pertinent positives and negatives as discussed in HPI, a complete review of systems was performed and all other systems are negative. Patient seen and examined at bedside. Continues to complain of ongoing shortness of breath, also improved, denies chest pain, abdominal pain Vital signs reviewed General: nontoxic, no distress, appears at stated age Derm: warm, dry Head: atraumatic, normocephalic, symmetric Eyes: EOMI, no lid lag, anicteric sclera, pupils equal round reactive to light ENT: Nose and ears atraumatic Neck: No thyromegaly, supple Mouth: no lip lesion, mucus membranes moist Cardiovascular: S1S2 reg, no murmur, no edema Lungs: Diminished air entry, no crackles or rails, diminished left lower lobe breath sounds Abdominal: soft, nontender to palpation, no guarding, no appreciable organomegaly Ext: no gross muscle atrophy, muscle strength muscle strength 5 out of 5 in all 4 extremities, no contractures Neuro: CN II-XII grossly intact Psych: Alert, oriented, appropriate affect Assessment/Plan: Acute hypoxic respiratory failure secondary to influenza A, community-acquired bacterial pneumonia -Continue IV ceftriaxone 2 g daily, azithromycin 500 p.o. daily SOT 08/10 -Continue Tamiflu 75 p.o. twice daily SOT 08/10 -Prednisone oral 40 daily -Wean off oxygen as tolerated -Continue albuterol as needed Mild intermittent asthma, not in exacerbation -Continue home Trelegy Ellipta, Advair, albuterol as needed Euvolemic hyponatremia: Continue to monitor BMP Hyperglycemia without diagnosis of DM: Check A1c, likely steroid-induced Elevated AST: Monitor CMP, no abdominal symptoms The patient is admitted with an anticipated [greater] than 2 midnight stay as [inpatient/observation] status for evaluation of acute hypoxic respiratory failure secondary to.CAP CODE STATUS: Full DVT prophylaxis: Lovenox Anticipated discharge date: 24 to [address]: Home A total of 40 minutes was spent on the care of this complex patient more than 50% of the time was spent in counseling and care coordination. Past Medical History Past Medical History: Asthma, GERD/Reflux Additional Past Medical History / Comment(s): ARTHRITIS,"HEADACHES", SHINGLES 5 YEARS AGO,HEMORRHOIDS, HAD PNE VACINE LESS THEN 5 YEARS AGO NOT SURE OF DATE History of Any Multi-Drug Resistant Organisms: None Reported Past Surgical History: Adenoidectomy, Tonsillectomy Additional Past Surgical History / Comment(s): X4 SINUS SX, BLEPHEROPLASTY Past Anesthesia/Blood Transfusion Reactions: No Reported Reaction Past Psychological History: No Psychological Hx Reported Smoking Status: Never smoker Past Alcohol Use History: Rare Past Drug Use History: None Reported - Past Family History Father Family Medical History: Blood Disorder Additional Family Medical History / Comment(s): HEMOCHROMATOSIS Medications and Allergies Home Medications Medication Instructions Recorded Confirmed Type Albuterol Nebulized [Ventolin 2.5 mg INHALATION RT-Q4H PRN 08/08/24 08/10/24 History Nebulized] Albuterol Sulfate [Albuterol 2 puff INHALATION RT-QID PRN 08/08/24 08/10/24 History Sulfate Hfa] Fluticasone Propion/Salmeterol 1 puff INHALATION RT-BID 08/08/24 08/10/24 History [Advair 250-50 Diskus] predniSONE [Deltasone] 20 mg PO BID #8 tab 08/08/24 08/10/24 Rx Azithromycin [Zithromax] See Taper PO DAILY 08/10/24 08/10/24 History Fluticasone/Umeclidin/Vilanter 1 puff INHALATION RT-DAILY 08/10/24 08/10/24 History [Trelegy Ellipta 200-62.5-25] Allergies Allergy/AdvReac Type Severity Reaction Status Date / Time tobramycin Allergy Rash/Hives Verified 08/10/24 10:10 Physical Exam Vitals: Vital Signs Temp Pulse Resp BP Pulse Ox 08/10/24 07:44 97.5 F L 86 20 133/77 91 L Intake and Output 08/09/24 08/10/24 08/10/24 22:59 06:59 14:59 Other: Weight 74.843 kg Results CBC & Chem 7: 08/10/24 08:11 08/10/24 08:11 Labs: Abnormal Lab Results - Last 24 Hours (Table) 08/10/24 08/10/24 Range/Units 08:11 08:11 Lymphocytes # 0.3 L (1.0-4.8) k/uL Sodium 135 L (137-145) mmol/L Glucose 179 H (74-99) mg/dL Calcium 8.2 L (8.4-10.2) mg/dL AST 63 H (17-59) U/L Total Protein 6.2 L (6.3-8.2) g/dL
[2024-08-10] MEDS: predniSONE 20 MG TAB PO SCH (14:20)
[2024-08-10] MEDS ORDERED: NON FORMULARY DRUG (Fluticasone Propion/Salmeterol [Advair 250-50 Diskus] 1 EACH Each) INHALATION SCH (20:00)
[2024-08-10] MEDS: ALBUTEROL NEBULIZED 2.5 MG/3 ML INHALATION PRN (22:06)
[2024-08-10] MEDS: SYMBICORT 160-4.5 MCG INHALER INHALATION SCH (22:06)
--- NOTE | 2024-08-11 07:17 | XR ---
EXAMINATION TYPE: XR chest 1V portable DATE OF EXAM: 08/11/2024 7:09 AM COMPARISON: None. CLINICAL INDICATION: Male, 69 years old with history of pneumonia-FLU A+, TECHNIQUE: XR chest 1V portable view(s) obtained. FINDINGS: The heart size is normal. The pulmonary vasculature is normal. Patchy diffuse infiltrates are present. This is more focal in the left lower lobe. Correlate for pneu monia. Small left pleural effusion is present. IMPRESSION: 1. Diffuse scattered infiltrates more focal left lower lobe. Small left pleural effusion present. [facility], , 08/11/2024 7:15 AM
[2024-08-11] MEDS: AZITHROMYCIN 500 MG TAB PO SCH (07:43)
[2024-08-11] MEDS: ENOXAPARIN 40 MG/0.4 ML SYRINGE SQ SCH (07:44)
[2024-08-11] MEDS: TIOTROPIUM 2.5 MCG INHALER INHALATION SCH (08:41)
[2024-08-11 09:19] LABS: ALT 36 U/L (10-49); AST 52 U/L (14-35); Albumin 3.2 g/dL (3.8-4.9); Albumin/Globulin Ratio 1.45 Ratio (1.60-3.17); Alkaline Phosphatase 55 U/L (41-126); BUN/Creat Ratio 16.88 Ratio (12.00-20.00); Blood Urea Nitrogen 13.5 mg/dL (9.0-27.0); Calcium 7.8 mg/dL (8.7-10.3); Carbon Dioxide 25.1 mmol/L (21.6-31.8); Chloride 105 mmol/L (96-109); Globulin 2.2 g/dL (1.6-3.3); Glucose 118 mg/dL (70-110); Potassium 4.1 mmol/L (3.5-5.5); Sodium 140 mmol/L (135-145); Total Bilirubin 0.4 mg/dL (0.3-1.2); Total Protein 5.4 g/dL (6.2-8.2)
--- NOTE | 2024-08-11 14:58 | P.PN ---
Subjective Progress Note Date: 08/11/24 Hospital Course: patient is a 69-year-old male with past medical history of asthma, GERD. Patient was diagnosed with flu 4 days ago. He reported to the ER 2 days ago however no beds were available and he went home on prednisone and Zithromax,, has been having progressively worsening shortness of breath, his home pulse ox showed that he was in 80s, he has associated nonproductive, had fever several days ago. He denies wheezing, his asthma is generally well-controlled, he is only on maintenance inhaler, has not used his rescue inhaler in a month. ED course: On arrival temperature 97.5, BP stable 133/97, 91 on room air, heart rate in 80s. Lab work showed no leukocytosis, stable normal hemoglobin and platelet count, sodium 135, potassium 4.3, creatinine 0.78, GFR normal, glucose elevated 179, lactate 2.0, AST elevated 63, normal ALT 31 Chest x-ray showed left lower lobe and right perihilar infiltrates, correlate for atelectasis or pneumonia. EKG showed sinus mechanism with nonspecific T wave abnormalities. QTc 394. denies smoking history He was admitted for further management of acute hypoxic respiratory failure secondary to influenza A and, superimposed community-acquired bacterial. Was started on IV ceftriaxone 2 g daily, azithromycin 500 p.o. daily, Tamiflu 75 twice daily, as well as prednisone 40 daily, continued on breathing treatment. Blood cultures showed growth of staph RES and epidermidis, possible contamination. Patient did spike fever on 08/11 around midnight, repeat blood cultures ordered, patient was continued on current antibiotics. Subjective: Patient was seen and examined at bedside, complains of persistent shortness of breath, did not notice significant improvement from yesterday Pertinent positives and negatives as discussed above, a complete review of systems was performed and all other systems are negative. Vitals Signs Reviewed. General: nontoxic, no distress, appears at stated age Derm: warm, dry Head: atraumatic, normocephalic, symmetric Eyes: EOMI, no lid lag, anicteric sclera, pupils equal round reactive to light ENT: Nose and ears atraumatic Neck: No thyromegaly, supple Mouth: no lip lesion, mucus membranes moist Cardiovascular: S1S2 reg, no murmur, no edema Lungs: Diminished air entry, no crackles or rails, diminished left lower lobe breath sounds Abdominal: soft, nontender to palpation, no guarding, no appreciable organomegaly Ext: no gross muscle atrophy, muscle strength muscle strength 5 out of 5 in all 4 extremities, no contractures Neuro: CN II-XII grossly intact Psych: Alert, oriented, appropriate affect Data Reviewed Today: Pertinent Labs: Sodium, potassium, creatinine normal, glucose is well-co ntrolled, AST 52, downtrending Assessment and Plan: Acute hypoxic respiratory failure secondary to influenza A, community-acquired bacterial pneumonia Staph aureus and Staph epidermidis growing in 1 set of blood cultures, possible contamination -Continue IV ceftriaxone 2 g daily, azithromycin 500 p.o. daily SOT 08/10 -Continue Tamiflu 75 p.o. twice daily SOT 08/10 -Prednisone oral 40 daily -Wean off oxygen as tolerated -Continue albuterol as needed -Repeat blood cultures 08/11 -chest xray for AM -CBC and BMP ordered Mild intermittent asthma, not in exacerbation -Continue home Trelegy Ellipta, Advair, albuterol as needed Euvolemic hyponatremia, resolved: Continue to monitor BMP Hyperglycemia without diagnosis of DM: Check A1c, likely steroid-induced Elevated AST: downtrended, no abdominal symptoms CODE STATUS: Full DVT prophylaxis: Lovenox Anticipated discharge date: 24 to [address]: Home Objective - Vital Signs Vital signs: Vital Signs Temp 98.5 F 08/11/24 14:40 Pulse 95 08/11/24 14:40 Resp 18 08/11/24 14:40 BP 119/79 08/11/24 14:40 Pulse Ox 93 L 08/11/24 14:40 FiO2 Intake & Output 08/10/24 08/11/24 08/11/24 18:59 06:59 18:59 Intake Total 120 Output Total 950 600 Balance -950 -480 Weight 74.843 kg 74.843 kg Intake: Oral 120 Output: Urine 950 600 Other: Voiding Method Toilet Urinal # Voids 2 - Labs CBC & Chem 7: 08/10/24 08:11 08/11/24 04:17 Labs: Abnormal Lab Results - Last 24 Hours (Table) 08/11/24 Range/Units 04:17 Glucose 118 H (70-110) mg/dL Calcium 7.8 L (8.7-10.3) mg/dL AST 52 H (14-35) U/L Total Protein 5.4 L (6.2-8.2) g/dL Albumin 3.2 L (3.8-4.9) g/dL Albumin/Globulin Ratio 1.45 L (1.60-3.17) Ratio Microbiology - Last 24 Hours (Table) 08/10/24 09:40 Blood Culture Gram Stain - Preliminary Blood Blood Culture - Preliminary Molecular ID 08/10/24 09:47 Gram Stain - Preliminary Sputum
--- NOTE | 2024-08-12 07:17 | XR ---
EXAMINATION TYPE: XR chest 1V portable DATE OF EXAM: 08/12/2024 6:56 AM COMPARISON: None. CLINICAL INDICATION: Male, 69 years old with history of persistent hypoxia, TECHNIQUE: XR chest 1V portable view(s) obtained. FINDINGS: The heart size is normal. The pulmonary vasculature is prominent. Diffuse increased lung markings are present bilaterally. Small effusions are present. IMPRESSION: 1. Small bilateral pleural effusions. 2. Correlate for bilateral overload [facility], , 08/12/2024 7:15 AM
[2024-08-12] MEDS: ALBUTEROL HFA INHALER INHALATION PRN (09:42)
[2024-08-12 10:46] LABS: Basophils # (A) 0.03 X 10*3/uL (0.00-0.10); Basophils % (A) 0.6 %; Eosinophils # (A) 0 X 10*3/uL (0.04-0.35); Eosinophils % (A) 0 %; HCT 40.4 % (39.6-50.0); HGB 13.1 g/dL (13.0-17.0); Lymphocytes # (A) 0.98 X 10*3/uL (0.90-5.00); Lymphocytes % (A) 20.7 %; MCHC 32.4 g/dL (32.0-37.0); MCV 89.6 FL (80.0-97.0); Mean Platelet Volume 10.2 FL (9.5-12.2); Monocytes # (A) 0.33 X 10*3/uL (0.20-1.00); NRBC Per 100 WBC 0 X 10*3/uL (0.00-0.01); Neutrophils # (A) 3.36 X 10*3/uL (1.80-7.70); Neutrophils % (A) 71.1 %; Platelet Count 191 X 10*3/uL (140-440); RBC 4.51 X 10*6/uL (4.40-5.60); WBC 4.73 X 10*3/uL (4.50-10.00)
[2024-08-12 10:57] LABS: BUN/Creat Ratio 15.88 Ratio (12.00-20.00); Blood Urea Nitrogen 12.7 mg/dL (9.0-27.0); Calcium 7.7 mg/dL (8.7-10.3); Carbon Dioxide 27.6 mmol/L (21.6-31.8); Chloride 102 mmol/L (96-109); Glucose 89 mg/dL (70-110); Potassium 4.2 mmol/L (3.5-5.5); Sodium 138 mmol/L (135-145)
--- NOTE | 2024-08-12 18:33 | P.PN ---
Subjective Progress Note Date: 08/12/24 Hospital Course: patient is a 69-year-old male with past medical history of asthma, GERD. Patient was diagnosed with flu 4 days ago. He reported to the ER 2 days ago however no beds were available and he went home on prednisone and Zithromax,, has been having progressively worsening shortness of breath, his home pulse ox showed that he was in 80s, he has associated nonproductive, had fever several days ago. He denies wheezing, his asthma is generally well-controlled, he is only on maintenance inhaler, has not used his rescue inhaler in a month. ED course: On arrival temperature 97.5, BP stable 133/97, 91 on room air, heart rate in 80s. Lab work showed no leukocytosis, stable normal hemoglobin and platelet count, sodium 135, potassium 4.3, creatinine 0.78, GFR normal, glucose elevated 179, lactate 2.0, AST elevated 63, normal ALT 31 Chest x-ray showed left lower lobe and right perihilar infiltrates, correlate for atelectasis or pneumonia. EKG showed sinus mechanism with nonspecific T wave abnormalities. QTc 394. denies smoking history He was admitted for further management of acute hypoxic respiratory failure secondary to influenza A and, superimposed community-acquired bacterial. Was started on IV ceftriaxone 2 g daily, azithromycin 500 p.o. daily, Tamiflu 75 twice daily, as well as prednisone 40 daily, continued on breathing treatment. Blood cultures showed growth of staph RES and epidermidis, possible contamination. Patient did spike fever on 08/11 around midnight, repeat blood cultures ordered, patient was continued on current antibiotics. Subjective: Patient was seen and examined at bedside, complains of persistent shortness of breath, did not notice significant improvement from yesterday but still requiring 4L NC Vitals Signs Reviewed. General: nontoxic, no distress, appears at stated age Derm: warm, dry Head: atraumatic, normocephalic, symmetric Eyes: EOMI, no lid lag, anicteric sclera, pupils equal round reactive to light ENT: Nose and ears atraumatic Neck: No thyromegaly, supple Mouth: no lip lesion, mucus membranes moist Cardiovascular: S1S2 reg, no murmur, no edema Lungs: Diminished air entry, no crackles or rails, diminished left lower lobe breath sounds Abdominal: soft, nontender to palpation, no guarding, no appreciable organ omegaly Ext: no gross muscle atrophy, muscle strength muscle strength 5 out of 5 in all 4 extremities, no contractures Neuro: CN II-XII grossly intact Psych: Alert, oriented, appropriate affect Data Reviewed Today: Pertinent Labs: Sodium, potassium, creatinine normal, glucose is well-controlled , AST 52, downtrending Assessment and Plan: Acute hypoxic respiratory failure secondary to influenza A, community-acquired bacterial pneumonia Staph aureus and Staph epidermidis growing in 1 set of blood cultures, possible contamination -Continue IV ceftriaxone 2 g daily, azithromycin 500 p.o. daily SOT 08/10 -Continue Tamiflu 75 p.o. twice daily SOT 08/10 -Prednisone oral 40 daily -Wean off oxygen as tolerated -Continue albuterol as needed -Repeat blood cultures 08/11 -chest xray for AM -CBC and BMP ordered Mild intermittent asthma, not in exacerbation -Continue home Trelegy Ellipta, Advair, albuterol as needed Euvolemic hyponatremia, resolved: Continue to monitor BMP Hyperglycemia without diagnosis of DM: Check A1c, likely steroid-induced Elevated AST: downtrended, no abdominal symptoms CODE STATUS: Full DVT prophylaxis: Lovenox Anticipated discharge date: 24 to [address]: Home Objective - Vital Signs Vital signs: Vital Signs Temp 98.3 F 08/12/24 14:00 Pulse 81 08/12/24 14:00 Resp 18 08/12/24 14:00 BP 128/81 08/12/24 14:00 Pulse Ox 93 L 08/12/24 14:00 FiO2 Intake & Output 08/11/24 08/12/24 08/12/24 18:59 06:59 18:59 Intake Total 120 0 1970 Output Total 8949 049 5020 Balance -1080 1445 370 Intake: Intake, IV Titration 50 Amount cefTRIAXone 2 gm In 50 Sodium Chloride 0.9% 50 ml @ 100 mls/hr IVPB Q24HR [facility] Rx#:[id number] Oral 120 0 1920 Output: Urine 0653 116 8555 Other: Voiding Method Toilet Urinal # Voids 4 # Bowel Movements 1 - Labs CBC & Chem 7: 08/12/24 03:29 08/12/24 03:29 Labs: Abnormal Lab Results - Last 24 Hours (Table) 08/12/24 08/12/24 Range/Units 03:29 03:29 Eosinophils # 0 L (0.04-0.35) X 10*3/uL Calcium 7.7 L (8.7-10.3) mg/dL Microbiology - Last 24 Hours (Table) 08/10/24 09:47 Gram Stain - Preliminary Sputum Sputum Culture - Preliminary 08/10/24 09:40 Blood Culture Gram Stain - Preliminary Blood Blood Culture - Preliminary Presumptive Staph aureus Coagulase Negative Staph Molecular ID
[2024-08-13 10:54] LABS: Basophils % (A) 0 %; Eosinophils % (A) 1 %; HCT 42.8 % (39.0-53.0); HGB 14.3 gm/dL (13.0-17.5); Lymphocytes # (A) 0.9 k/uL (1.0-4.8); Lymphocytes % (A) 23 %; MCH 29.5 pg (25.0-35.0); MCHC 33.4 g/dL (31.0-37.0); MCV 88.4 fL (80.0-100.0); Mean Platelet Volume 8.3; Monocytes # (A) 0.3 k/uL (0-1.0); Monocytes % (A) 6 %; Neutrophils # (A) 2.8 k/uL (1.3-7.7); Neutrophils % (A) 69 %; Platelet Count 268 k/uL (150-450); RBC 4.84 m/uL (4.30-5.90); RDW 12.1 % (11.5-15.5); WBC 4.1 k/uL (3.8-10.6)
[2024-08-13 11:20] LABS: African American GFR (CKD) >90 (>60 ml/min/1.73 sqM); Anion Gap 10 mmol/L; Blood Urea Nitrogen 15 mg/dL (9-20); C Reactive Protein 2.9 mg/dL (<1.0); Calcium 8.3 mg/dL (8.4-10.2); Carbon Dioxide 28 mmol/L (22-30); Chloride 97 mmol/L (98-107); Glucose 124 mg/dL (74-99); Magnesium 2.2 mg/dL (1.6-2.3); Non-African American GFR(CKD) >90 (>60 ml/min/1.73 sqM); Potassium 3.7 mmol/L (3.5-5.1); Sodium 135 mmol/L (137-145)
--- NOTE | 2024-08-13 12:23 | P.CONS ---
History of Present Illness - Reason for Consult Consult date: 08/13/24 Bacteremia Requesting physician: Romi Franco - Chief Complaint Shortness of breath and cough x 10 days - History of Present Illness Patient is a 69-year-old male with a past medical history of negative for asthma reflux never smoker started getting sick about 10 days ago when he did have URI symptoms as well as generalized bodyaches patient was evaluated by his PCP and apparently he did tested positive for influenza A he did receive a shot and was subsequently sent home mention did not receive any Tamiflu subsequently has been evaluated in [facility] ER on 08/08/2024 at that time when he did have a normal white count UA was negative he did have a chest x-ray small infiltrate along the posterior left diaphragm atelectasis favored and the patient was discharged from the ER subsequently he did have follow-up visit with his PCP with the patient was noticed to be significantly hypoxic, and wanted to send the patient via EMS to the hospital however patient mention he came to the ER on 08/10/2024 as the patient has been hospital since then on presentation to the hospital he was afebrile he did have a low-grade fever of 99.7 on 08/11/2024 patient was not tachycardic or hypotensive he was hypoxic and is currently on 4 L nasal oxygen patient still complaining of shortness of breath with minimal exertion and chest tightness he did have a cough moderate intensity bring up some sputum no hemoptysis patient denies any nausea no vomiting no abdominal pain did have some diarrhea on presenting to the hospital he did have white count of 4.4 and has remains to be normal creatinine has been normal AST mildly elevated CRP is 2.9 tested positive for influenza A blood culture now coming back positive with MSSA port infection it was consulted for further management Review of Systems Positive point and negatives has been mentioned in the HPI, complete review of systems was performed and all other systems are negative Past Medical History Past Medical History: Asthma, GERD/Reflux Additional Past Medical History / Comment(s): ARTHRITIS,"HEADACHES", SHINGLES 5 YEARS AGO,HEMORRHOIDS, HAD PNE VACINE LESS THEN 5 YEARS AGO NOT SURE OF DATE History of Any Multi-Drug Resistant Organisms: None Reported Past Surgical History: Adenoidectomy, Tonsillectomy Additional Past Surgical History / Comment(s): X4 SINUS SX, BLEPHEROPLASTY Past Anesthesia/Blood Transfusion Reactions: No Reported Reaction Past Psychological History: No Psychological Hx Reported Smoking Status: Never smoker Past Alcohol Use History: Rare Additional Past Alcohol Use History / Comment(s): SMOKE FROM AGE 17 TO AGE 19 Past Drug Use History: None Reported - Past Family History Father Family Medical History: Blood Disorder Additional Family Medical History / Comment(s): HEMOCHROMATOSIS Medications and Allergies Home Medications Medication Instructions Recorded Confirmed Type Albuterol Nebulized [Ventolin 2.5 mg INHALATION RT-Q4H PRN 08/08/24 08/10/24 History Nebulized] Albuterol Sulfate [Albuterol 2 puff INHALATION RT-QID PRN 08/08/24 08/10/24 History Sulfate Hfa] Fluticasone Propion/Salmeterol 1 puff INHALATION RT-BID 08/08/24 08/10/24 History [Advair 250-50 Diskus] predniSONE [Deltasone] 20 mg PO BID #8 tab 08/08/24 08/10/24 Rx Azithromycin [Zithromax] See Taper PO DAILY 08/10/24 08/10/24 History Fluticasone/Umeclidin/Vilanter 1 puff INHALATION RT-DAILY 08/10/24 08/10/24 History [Trelegy Ellipta 200-62.5-25] Allergies Allergy/AdvReac Type Severity Reaction Status Date / Time tobramycin Allergy Rash/Hives Verified 08/10/24 10:10 Physical Exam Vitals: Vital Signs Temp Pulse Pulse Resp BP Pulse Ox 08/13/24 10:00 92 L 08/13/24 09:46 93 L 08/13/24 08:35 73 16 08/13/24 07:38 97.7 F 73 16 142/92 93 L 08/13/24 02:00 98.4 F 76 16 133/80 94 L 08/12/24 20:52 95 08/12/24 20:42 92 08/12/24 20:14 98.5 F 75 16 136/84 93 L 08/12/24 14:00 98.3 F 81 18 128/81 93 L Intake and Output 08/12/24 08/13/24 08/13/24 22:59 06:59 14:59 Intake Total 1440 Output Total 750 Balance 690 Intake: Oral 1440 Output: Urine 750 Other: Voiding Method Toilet Toilet Urinal Urinal # Voids 4 # Bowel Movements 1 GENERAL DESCRIPTION: Elderly male up in the chair no distress. No tachypnea or accessory muscle of respiration use. HEENT: Shows Pallor , no scleral icterus. Oral mucous membrane is dry. NECK: Trachea central, no thyromegaly. LUNGS: Unlabored breathing. Decreased breath sound at the base. No wheeze or crackle. HEART: S1, S2, regular rate and rhythm. No loud murmur ABDOMEN: Soft, no tenderness , EXTREMITIES: No edema of feet. SKIN: No rash, no masses palpable. NEUROLOGICAL: The patient is awake, alert, oriented x3, mood and affect normal. Results CBC & Chem 7: 08/13/24 09:30 08/13/24 09:30 Labs: Abnormal Lab Results - Last 24 Hours (Table) 08/13/24 Range/Units 09:30 Lymphocytes # 0.9 L (1.0-4.8) k/uL Microbiology - Last 24 Hours (Table) 08/10/24 09:40 Blood Culture Gram Stain - Final Blood Blood Culture - Final Staphylococcus aureus Coagulase Negative Staph Molecular ID 08/10/24 09:47 Gram Stain - Preliminary Sputum Sputum Culture - Preliminary Assessment and Plan (1) MSSA bacteremia Current Visit: Yes Status: Acute Code(s): R78.81 - BACTEREMIA; B95.61 - METHICILLIN SUSCEP STAPH INFCT CAUSING DIS CLASSD ELSWHR SNOMED Code(s): 034536352 (2) Influenza Current Visit: Yes Status: Acute Code(s): J11.1 - FLU DUE TO UNIDENTIFIED INFLUENZA VIRUS W OTH RESP MANIFEST SNOMED Code(s): 3368302 (3) Pneumonia Current Visit: Yes Status: Acute Code(s): J18.9 - PNEUMONIA, UNSPECIFIED ORGANISM SNOMED Code(s): 329774147 Plan: 1patient with MSSA bacteremia source is likely pneumonia in this patient has been diagnosed with influenza A and very common to have Staph aureus pneumonia postacute influenza and now with evidence of bacteremia as no other obvious focus for this bacteremia. 2blood culture has been repeated document clearance of bacteremia 3patient also tested positive for influenza and currently being treated with Tamiflu to finish a 5-day course of therapy 4we will discontinue Rocephin and start the patient cefazolin 2 g every 8 hours Patient will need a midline outpatient antibiotic once he clear his bacteremia this was explained to the patient in layman term All question concern answered We will follow on clinical condition and cultures to further adjust medication if needed Thank you for this consultation we will follow the patient along with you Dictation was produced using [employer] dictation software. please excuse any grammatical, word or spelling errors. Time with Patient: Greater than 30
--- NOTE | 2024-08-13 15:29 | P.PN ---
Subjective Progress Note Date: 08/13/24 Hospital Course: patient is a 69-year-old male with past medical history of asthma, GERD. Patient was diagnosed with flu 4 days ago. He reported to the ER 2 days ago however no beds were available and he went home on prednisone and Zithromax,, has been having progressively worsening shortness of breath, his home pulse ox showed that he was in 80s, he has associated nonproductive, had fever several days ago. He denies wheezing, his asthma is generally well-controlled, he is only on maintenance inhaler, has not used his rescue inhaler in a month. ED course: On arrival temperature 97.5, BP stable 133/97, 91 on room air, heart rate in 80s. Lab work showed no leukocytosis, stable normal hemoglobin and platelet count, sodium 135, potassium 4.3, creatinine 0.78, GFR normal, glucose elevated 179, lactate 2.0, AST elevated 63, normal ALT 31 Chest x-ray showed left lower lobe and right perihilar infiltrates, correlate for atelectasis or pneumonia. EKG showed sinus mechanism with nonspecific T wave abnormalities. QTc 394. denies smoking history He was admitted for further management of acute hypoxic respiratory failure secondary to influenza A and, superimposed community-acquired bacterial. Was started on IV ceftriaxone 2 g daily, azithromycin 500 p.o. daily, Tamiflu 75 twice daily, as well as prednisone 40 daily, continued on breathing treatment. Blood cultures showed growth of staph RES and epidermidis, possible contamination. Patient did spike fever on 08/11 around midnight, repeat blood cultures ordered, patient was continued on current antibiotics. Subjective: Patient was seen and examined at bedside, improved oxygen requirement to 3L NC. Vitals Signs Reviewed. Gen: In NAD, non-toxic HEENT: normocephalic, atraumatic, hearing acuity is intant, mucous membranes moist CVS: perfusing all extremities well, no pitting edema, Respiratory: symmetric chest expansion, no accessory muscle use, GI: soft, NTTP, ND, : no suprapubic tenderness, no CVA tenderness MSK/Derm: no rashes, cyanosis Neuro: CN II-XII intact, no motor weakness, Psych: cooperative, euthymic mood, judgment and insight is intact Assessment and Plan: Acute hypoxic respiratory failure secondary to influenza A, community-acquired bacterial pneumonia Staph aureus Bacteremia -ID consulted -Cefazolin -Repeat BCx -Continue Tamiflu 75 p.o. twice daily SOT 08/10 -Prednisone oral 40 daily Mild intermittent asthma, not in exacerbation -Continue home Trelegy Ellipta, Advair, albuterol as needed Euvolemic hyponatremia, resolved: Continue to monitor BMP Hyperglycemia without diagnosis of DM: Check A1c, likely steroid-induced Elevated AST: downtrended, no abdominal symptoms CODE STATUS: Full DVT prophylaxis: Lovenox Anticipated discharge date: 24 to [address]: Home Objective - Vital Signs Vital signs: Vital Signs Temp 97.7 F 08/13/24 07:38 Pulse 87 08/13/24 13:58 Resp 16 08/13/24 13:58 BP 111/71 08/13/24 13:58 Pulse Ox 93 L 08/13/24 13:58 FiO2 Intake & Output 08/12/24 08/13/24 08/13/24 18:59 06:59 18:59 Intake Total 1970 Output Total 1600 Balance 370 Intake: Intake, IV Titration 50 Amount cefTRIAXone 2 gm In 50 Sodium Chloride 0.9% 50 ml @ 100 mls/hr IVPB Q24HR [facility] Rx#:[id number] Oral 1920 Output: Urine 1600 Other: Voiding Method Toilet Toilet Urinal Urinal # Voids 4 # Bowel Movements 1 - Labs CBC & Chem 7: 08/13/24 09:30 08/13/24 09:30 Labs: Abnormal Lab Results - Last 24 Hours (Table) 08/13/24 08/13/24 Range/Units 09:30 09:30 Lymphocytes # 0.9 L (1.0-4.8) k/uL Sodium 135 L (137-145) mmol/L Chloride 97 L (98-107) mmol/L Glucose 124 H (74-99) mg/dL Calcium 8.3 L (8.4-10.2) mg/dL C-Reactive Protein 2.9 H (<1.0) mg/dL Microbiology - Last 24 Hours (Table) 08/10/24 09:47 Gram Stain - Final Sputum Sputum Culture - Final 08/10/24 09:40 Blood Culture Gram Stain - Final Blood Blood Culture - Final Staphylococcus aureus Coagulase Negative Staph Molecular ID
[2024-08-14 09:52] LABS: Basophils # (A) 0.01 X 10*3/uL (0.00-0.10); Basophils % (A) 0.2 %; Eosinophils # (A) 0.03 X 10*3/uL (0.04-0.35); Eosinophils % (A) 0.6 %; HCT 41.2 % (39.6-50.0); HGB 14.2 g/dL (13.0-17.0); MCHC 34.5 g/dL (32.0-37.0); MCV 86.9 FL (80.0-97.0); Mean Platelet Volume 9.9 FL (9.5-12.2); Monocytes # (A) 0.51 X 10*3/uL (0.20-1.00); Monocytes % (A) 9.8 %; NRBC Per 100 WBC 0 X 10*3/uL (0.00-0.01); Neutrophils # (A) 3.41 X 10*3/uL (1.80-7.70); Neutrophils % (A) 65.3 %; Platelet Count 273 X 10*3/uL (140-440); RBC 4.74 X 10*6/uL (4.40-5.60); RDW 11.5 % (11.5-14.5); WBC 5.22 X 10*3/uL (4.50-10.00)
[2024-08-14 10:02] LABS: BUN/Creat Ratio 19.62 Ratio (12.00-20.00); Blood Urea Nitrogen 15.7 mg/dL (9.0-27.0); Carbon Dioxide 25.8 mmol/L (21.6-31.8); Chloride 102 mmol/L (96-109); Glucose 82 mg/dL (70-110); Potassium 4.2 mmol/L (3.5-5.5); Sodium 138 mmol/L (135-145)
--- NOTE | 2024-08-14 15:08 | P.PN ---
Subjective Progress Note Date: 08/14/24 Principal diagnosis: Reason for follow-up is influenza A pneumonia and bacteremia Patient is a 69-year-old male with a past medical history of negative for asthma reflux never smoker started getting sick about 10 days ago before presenting to the hospital has been diagnosed with influenza A pneumonia with secondary bacteremia prompting this consultation. On today's evaluation that is 08/14/2024, Patient is afebrile patient is currently on 4 L nasal oxygen and complaining of shortness of breath on exertion, the patient denies any chest pain or any worsening cough, the patient denies any nausea vomiting did not have any abdominal pain and no diarrhea. Patient white count is 5.22, creatinine 0.8 CRP is trending down blood culture repeat are pending Objective - Vital Signs Vital signs: Vital Signs Temp 98.9 F 08/14/24 14:16 Pulse 79 08/14/24 14:16 Resp 16 08/14/24 14:16 BP 109/69 08/14/24 14:16 Pulse Ox 93 L 08/14/24 14:16 FiO2 Intake & Output 08/13/24 08/14/24 08/14/24 18:59 06:59 18:59 Intake Total 2700 Output Total 850 Balance 1850 Intake: Oral 2700 Output: Urine 850 Other: Voiding Method Toilet Toilet Urinal Urinal # Voids 3 - Exam GENERAL DESCRIPTION: An elderly male up in the chair in no distress RESPIRATORY SYSTEM: Unlabored breathing , decreased breath sounds at bases HEART: S1 S2 regular rate and rhythm , ABDOMEN: Soft , no tenderness EXTREMITIES: No edema feet - Labs CBC & Chem 7: 08/14/24 02:52 08/14/24 02:52 Labs: Abnormal Lab Results - Last 24 Hours (Table) 08/14/24 08/14/24 Range/Units 02:52 02:52 Immature Gran # 0.06 H (0.00-0.04) X 10*3/uL Eosinophils # 0.03 L (0.04-0.35) X 10*3/uL Calcium 8.0 L (8.7-10.3) mg/dL C-Reactive Protein 1.70 H (0.00-0.80) mg/dL Microbiology - Last 24 Hours (Table) 08/10/24 09:47 Gram Stain - Final Sputum Sputum Culture - Final Assessment and Plan (1) MSSA bacteremia Current Visit: Yes Status: Acute Code(s): R78.81 - BACTEREMIA; B95.61 - METHICILLIN SUSCEP STAPH INFCT CAUSING DIS CLASSD ELSWHR SNOMED Code(s): 084208644 (2) Influenza Current Visit: Yes Status: Acute Code(s): J11.1 - FLU DUE TO UNIDENTIFIED INFLUENZA VIRUS W OTH RESP MANIFEST SNOMED Code(s): 5756621 (3) Pneumonia Current Visit: Yes Status: Acute Code(s): J18.9 - PNEUMONIA, UNSPECIFIED ORGANISM SNOMED Code(s): 141857930 Plan: 1patient with MSSA bacteremia source is likely pneumonia in this patient has been diagnosed with influenza A and very common to have Staph aureus pneumonia postacute influenza and now with evidence of bacteremia as no other obvious focus for this bacteremia. 2blood culture has been repeated document clearance of bacteremia which are currently pending 3patient also tested positive for influenza and currently being treated with Tamiflu to finish a 5-day course of therapy 4patient to continue with cefazolin 2 g every 8 hours will need a midline once he clear his bacteremia or outpatient IV cefazolin encouraged to use his incentive spirometry and will monitor clinical course closely Dictation was produced using [employer] dictation software. please excuse any grammatical, word or spelling errors. Time with Patient: Less than 30
--- NOTE | 2024-08-14 15:28 | P.PN ---
Subjective Progress Note Date: 08/14/24 Hospital Course: patient is a 69-year-old male with past medical history of asthma, GERD. Patient was diagnosed with flu 4 days ago. He reported to the ER 2 days ago however no beds were available and he went home on prednisone and Zithromax,, has been having progressively worsening shortness of breath, his home pulse ox showed that he was in 80s, he has associated nonproductive, had fever several days ago. He denies wheezing, his asthma is generally well-controlled, he is only on maintenance inhaler, has not used his rescue inhaler in a month. ED course: On arrival temperature 97.5, BP stable 133/97, 91 on room air, heart rate in 80s. Lab work showed no leukocytosis, stable normal hemoglobin and platelet count, sodium 135, potassium 4.3, creatinine 0.78, GFR normal, glucose elevated 179, lactate 2.0, AST elevated 63, normal ALT 31 Chest x-ray showed left lower lobe and right perihilar infiltrates, correlate for atelectasis or pneumonia. EKG showed sinus mechanism with nonspecific T wave abnormalities. QTc 394. denies smoking history He was admitted for further management of acute hypoxic respiratory failure secondary to influenza A and, superimposed community-acquired bacterial. Was started on IV ceftriaxone 2 g daily, azithromycin 500 p.o. daily, Tamiflu 75 twice daily, as well as prednisone 40 daily, continued on breathing treatment. Blood cultures showed growth of staph RES and epidermidis, possible contamination. Patient did spike fever on 08/11 around midnight, repeat blood cultures ordered, patient was continued on current antibiotics. Subjective: Patient was seen and examined at bedside, improved oxygen requirement to 3L NC. Vitals Signs Reviewed. Gen: In NAD, non-toxic HEENT: normocephalic, atraumatic, hearing acuity is intant, mucous membranes moist CVS: perfusing all extremities well, no pitting edema, Respiratory: symmetric chest expansion, no accessory muscle use, GI: soft, NTTP, ND, : no suprapubic tenderness, no CVA tenderness MSK/Derm: no rashes, cyanosis Neuro: CN II-XII intact, no motor weakness, Psych: cooperative, euthymic mood, judgment and insight is intact Assessment and Plan: Acute hypoxic respiratory failure secondary to influenza A, community-acquired bacterial pneumonia Staph aureus Bacteremia -ID consulted -Cefazolin -Repeat BCx -Continue Tamiflu 75 p.o. twice daily SOT 08/10 -Prednisone oral 40 daily Mild intermittent asthma, not in exacerbation -Continue home Trelegy Ellipta, Advair, albuterol as needed Euvolemic hyponatremia, resolved: Continue to monitor BMP Hyperglycemia without diagnosis of DM: Check A1c, likely steroid-induced Elevated AST: downtrended, no abdominal symptoms CODE STATUS: Full DVT prophylaxis: Lovenox Anticipated discharge date: 24 to [address]: Home Objective - Vital Signs Vital signs: Vital Signs Temp 98.9 F 08/14/24 14:16 Pulse 79 08/14/24 14:16 Resp 16 08/14/24 14:16 BP 109/69 08/14/24 14:16 Pulse Ox 93 L 08/14/24 14:16 FiO2 Intake & Output 08/13/24 08/14/24 08/14/24 18:59 06:59 18:59 Intake Total 2700 Output Total 850 Balance 1850 Intake: Oral 2700 Output: Urine 850 Other: Voiding Method Toilet Toilet Urinal Urinal # Voids 3 - Labs CBC & Chem 7: 08/14/24 02:52 08/14/24 02:52 Labs: Abnormal Lab Results - Last 24 Hours (Table) 08/14/24 08/14/24 Range/Units 02:52 02:52 Immature Gran # 0.06 H (0.00-0.04) X 10*3/uL Eosinophils # 0.03 L (0.04-0.35) X 10*3/uL Calcium 8.0 L (8.7-10.3) mg/dL C-Reactive Protein 1.70 H (0.00-0.80) mg/dL Microbiology - Last 24 Hours (Table) 08/10/24 09:47 Gram Stain - Final Sputum Sputum Culture - Final
--- NOTE | 2024-08-15 12:22 | P.PN ---
Subjective Progress Note Date: 08/15/24 Principal diagnosis: Reason for follow-up is influenza A pneumonia and bacteremia Patient is a 69-year-old male with a past medical history of negative for asthma reflux never smoker started getting sick about 10 days ago before presenting to the hospital has been diagnosed with influenza A pneumonia with secondary bacteremia prompting this consultation. On today's evaluation that is 08/15/2024, patient has been afebrile, patient is breathing slightly comfortably still have shortness of breath on exertion and is currently on 4 L nasal oxygen patient denies having any significant chest pain or worsening cough, patient denies nausea vomiting or diarrhea and no abdominal pain. Patient labs pending from today blood cultures will currently pending Objective - Vital Signs Vital signs: Vital Signs Temp 98.4 F 08/15/24 08:00 Pulse 84 08/15/24 08:00 Resp 17 08/15/24 08:00 BP 105/67 08/15/24 08:00 Pulse Ox 93 L 08/15/24 10:00 FiO2 Intake & Output 08/14/24 08/15/24 08/15/24 18:59 06:59 18:59 Intake Total 3150 Output Total 1425 Balance 1725 Intake: Oral 3150 Output: Urine 1425 Other: Voiding Method Toilet Toilet Urinal Urinal # Voids 5 - Exam GENERAL DESCRIPTION: An elderly male up in the chair in no distress RESPIRATORY SYSTEM: Unlabored breathing , decreased breath sounds at bases HEART: S1 S2 regular rate and rhythm , ABDOMEN: Soft , no tenderness EXTREMITIES: No edema feet - Labs CBC & Chem 7: 08/14/24 02:52 08/14/24 02:52 Assessment and Plan (1) MSSA bacteremia Current Visit: Yes Status: Acute Code(s): R78.81 - BACTEREMIA; B95.61 - METHICILLIN SUSCEP STAPH INFCT CAUSING DIS CLASSD ELSWHR SNOMED Code(s): 711359834 (2) Influenza Current Visit: Yes Status: Acute Code(s): J11.1 - FLU DUE TO UNIDENTIFIED INFLUENZA VIRUS W OTH RESP MANIFEST SNOMED Code(s): 7862002 (3) Pneumonia Current Visit: Yes Status: Acute Code(s): J18.9 - PNEUMONIA, UNSPECIFIED ORGANISM SNOMED Code(s): 460013178 Plan: 1patient with MSSA bacteremia source is likely pneumonia in this patient has been diagnosed with influenza A and very common to have Staph aureus pneumonia postacute influenza and now with evidence of bacteremia as no other obvious focus for this bacteremia. 2blood culture has been repeated, which are currently pending 3patient also tested positive for influenza and currently being treated with Tamiflu to finish a 5-day course of therapy 4patient did have some clinical improvement currently waiting for repeat culture to be negative before placement of a midline and outpatient IV cefazolin continue with the cefazolin multiple question concern answered Dictation was produced using [employer] dictation software. please excuse any grammatical, word or spelling errors. Time with Patient: Less than 30
--- NOTE | 2024-08-15 12:39 | CA ---
Transthoracic Echo Report Name: Jace Cameron Age: 69 Gender: M : 1955 Exam Date: 08/15/2024 11:11 Exam Location: [place] [facility] Ht (in): 68 Wt (lb): 165 Ordering Physician: Romi Franco MD Attending/Referring Phys: Semaphore Operator Alejandra Carey RDCS Procedure CPT: Indications: bacteremia Cardiac Hx: Technical Quality: Good Contrast 1: Total Dose (mL): Contrast 2: Total Dose (mL): MEASUREMENTS (Male / Female) Normal Values 2D ECHO LV Diastolic Diameter PLAX 5.3 cm 4.2 - 5.9 / 3.9 - 5.3 cm LV Systolic Diameter PLAX 3.3 cm IVS Diastolic Thickness 1.1 cm 0.6 - 1.0 / 0.6 - 0.9 cm LVPW Diastolic Thickness 1.1 cm 0.6 - 1.0 / 0.6 - 0.9 cm LV Relative Wall Thickness 0.4 RV Internal Dim ED PLAX 2.6 cm LA Systolic Diameter LX 3.6 cm 3.0 - 4.0 / 2.7 - 3.8 cm M-MODE Aortic Root Diameter MM 3.4 cm DOPPLER AV Peak Velocity 127.4 cm/s AV Peak Gradient 6.5 mmHg AI Peak Velocity 393.8 cm/s AI Peak Gradient 62.0 mmHg AI Pressure Half Time 1381.1 ms Mitral E Point Velocity 66.9 cm/s Mitral A Point Velocity 92.6 cm/s Mitral E to A Ratio 0.7 MV Deceleration Time 332.0 ms MV E' Velocity 8.4 cm/s Mitral E to MV E' Ratio 7.9 TR Peak Velocity 260.4 cm/s TR Peak Gradient 27.1 mmHg Right Ventricular Systolic Press 37.1 mmHg FINDINGS Left Ventricle Left ventricular ejection fraction is estimated at 55-60 %. Left ventricular cavity size normal. Mildly increased septal wall thickness. Right Ventricle Normal right ventricular size and function. Mild pulmonary hypertension. Right Atrium Normal right atrial size. No right atrial thrombus or mass seen. Left Atrium Normal left atrial size. No left atrial thrombus or mass present. Mitral Valve Structurally normal mitral valve. Mild mitral regurgitation. Aortic Valve Trileaflet aortic valve. Thickened aortic valve without stenosis. Mild aortic regurgitation. Tricuspid Valve Structurally normal tricuspid valve. Mild tricuspid regurgitation. Pulmonic Valve Structurally normal pulmonic valve. No pulmonic regurgitation. Pericardium No pericardial effusion. Aorta Normal size aortic root and proximal ascending aorta. CONCLUSIONS Normal LV systolic function Mild mitral aortic and tricuspid regurgitation Previewed by: Dr. Mike Shore MD (Electronically Signed) Final Date: 15 August 2024 12:38
--- NOTE | 2024-08-15 13:54 | P.PN ---
Subjective Progress Note Date: 08/15/24 Hospital Course: patient is a 69-year-old male with past medical history of asthma, GERD. Patient was diagnosed with flu 4 days ago. He reported to the ER 2 days ago however no beds were available and he went home on prednisone and Zithromax,, has been having progressively worsening shortness of breath, his home pulse ox showed that he was in 80s, he has associated nonproductive, had fever several days ago. He denies wheezing, his asthma is generally well-controlled, he is only on maintenance inhaler, has not used his rescue inhaler in a month. ED course: On arrival temperature 97.5, BP stable 133/97, 91 on room air, heart rate in 80s. Lab work showed no leukocytosis, stable normal hemoglobin and platelet count, sodium 135, potassium 4.3, creatinine 0.78, GFR normal, glucose elevated 179, lactate 2.0, AST elevated 63, normal ALT 31 Chest x-ray showed left lower lobe and right perihilar infiltrates, correlate for atelectasis or pneumonia. EKG showed sinus mechanism with nonspecific T wave abnormalities. QTc 394. denies smoking history He was admitted for further management of acute hypoxic respiratory failure secondary to influenza A and, superimposed community-acquired bacterial. Was started on IV ceftriaxone 2 g daily, azithromycin 500 p.o. daily, Tamiflu 75 twice daily, as well as prednisone 40 daily, continued on breathing treatment. Blood cultures showed growth of staph RES and epidermidis, possible contamination. Patient did spike fever on 08/11 around midnight, repeat blood cultures ordered, patient was continued on current antibiotics. Subjective: Patient was seen and examined at bedside, oxygen requirement still at 4L NC. Will obtain repeat CXR today. Vitals Signs Reviewed. Gen: In NAD, non-toxic HEENT: normocephalic, atraumatic, hearing acuity is intant, mucous membranes moist CVS: perfusing all extremities well, no pitting edema, Respiratory: symmetric chest expansion, no accessory muscle use, GI: soft, NTTP, ND, : no suprapubic tenderness, no CVA tenderness MSK/Derm: no rashes, cyanosis Neuro: CN II-XII intact, no motor weakness, Psych: cooperative, euthymic mood, judgment and insight is intact Assessment and Plan: Acute hypoxic respiratory failure secondary to influenza A, community-acquired bacterial pneumonia Staph aureus Bacteremia -ID consulted -Cefazolin -Repeat BCx -Continue Tamiflu 75 p.o. twice daily SOT 08/10 -Prednisone oral 40 daily Mild intermittent asthma, not in exacerbation -Continue home Trelegy Ellipta, Advair, albuterol as needed Euvolemic hyponatremia, resolved: Continue to monitor BMP Hyperglycemia without diagnosis of DM: Check A1c, likely steroid-induced Elevated AST: downtrended, no abdominal symptoms CODE STATUS: Full DVT prophylaxis: Lovenox Anticipated discharge date: 24 to [address]: Home Objective - Vital Signs Vital signs: Vital Signs Temp 98.4 F 08/15/24 08:00 Pulse 84 08/15/24 08:00 Resp 17 08/15/24 08:00 BP 105/67 08/15/24 08:00 Pulse Ox 93 L 08/15/24 10:00 FiO2 Intake & Output 08/14/24 08/15/24 08/15/24 18:59 06:59 18:59 Intake Total 3150 150 Output Total 1425 Balance 1725 150 Intake: Oral 3150 150 Output: Urine 1425 Other: Voiding Method Toilet Toilet Urinal Urinal # Voids 5 - Labs CBC & Chem 7: 08/14/24 02:52 08/14/24 02:52 Labs: Microbiology - Last 24 Hours (Table) 08/14/24 02:52 Blood Culture - Preliminary Blood 08/13/24 09:30 Blood Culture - Preliminary Blood
--- NOTE | 2024-08-15 14:21 | XR ---
EXAMINATION TYPE: XR chest 1V portable DATE OF EXAM: 08/15/2024 2:11 PM COMPARISON: Chest x-ray 3 days ago CLINICAL INDICATION: Male, 69 years old with history of hypoxia, TECHNIQUE: Single frontal view of the chest is obtained. FINDINGS: Persistent bilateral multifocal increased opacities. The cardiac silhouette size is stable and within normal limits. The osseous structures are intact. IMPRESSION: Bilateral multifocal acute infiltrates and/or edema remain present. No significant change from most recent study. [facility], , 08/15/2024 2:19 PM
--- NOTE | 2024-08-16 10:28 | P.PN ---
Subjective Progress Note Date: 08/16/24 Hospital Course: patient is a 69-year-old male with past medical history of asthma, GERD. Patient was diagnosed with flu 4 days ago. He reported to the ER 2 days ago however no beds were available and he went home on prednisone and Zithromax,, has been having progressively worsening shortness of breath, his home pulse ox showed that he was in 80s, he has associated nonproductive, had fever several days ago. He denies wheezing, his asthma is generally well-controlled, he is only on maintenance inhaler, has not used his rescue inhaler in a month. ED course: On arrival temperature 97.5, BP stable 133/97, 91 on room air, heart rate in 80s. Lab work showed no leukocytosis, stable normal hemoglobin and platelet count, sodium 135, potassium 4.3, creatinine 0.78, GFR normal, glucose elevated 179, lactate 2.0, AST elevated 63, normal ALT 31 Chest x-ray showed left lower lobe and right perihilar infiltrates, correlate for atelectasis or pneumonia. EKG showed sinus mechanism with nonspecific T wave abnormalities. QTc 394. denies smoking history He was admitted for further management of acute hypoxic respiratory failure secondary to influenza A and, superimposed community-acquired bacterial. Was started on IV ceftriaxone 2 g daily, azithromycin 500 p.o. daily, Tamiflu 75 twice daily, as well as prednisone 40 daily, continued on breathing treatment. Blood cultures showed growth of staph RES and epidermidis, possible contamination. Patient did spike fever on 08/11 around midnight, repeat blood cultures ordered, patient was continued on current antibiotics. Subjective: Patient was seen and examined at bedside, oxygen requirement still at 4L NC. Will obtain repeat CXR today. Vitals Signs Reviewed. Gen: In NAD, non-toxic HEENT: normocephalic, atraumatic, hearing acuity is intant, mucous membranes moist CVS: perfusing all extremities well, no pitting edema, Respiratory: symmetric chest expansion, no accessory muscle use, GI: soft, NTTP, ND, : no suprapubic tenderness, no CVA tenderness MSK/Derm: no rashes, cyanosis Neuro: CN II-XII intact, no motor weakness, Psych: cooperative, euthymic mood, judgment and insight is intact Assessment and Plan: Acute hypoxic respiratory failure secondary to influenza A, community-acquired bacterial pneumonia Staph aureus Bacteremia -ID consulted -Cefazolin -Repeat BCx, NGTD -Continue Tamiflu 75 p.o. twice daily SOT 08/10 -Prednisone oral 40 daily -order Echo secondary to minimal improvement, screen for pulm HTN shows mild pulm HTN Mild intermittent asthma, not in exacerbation -Continue home Trelegy Ellipta, Advair, albuterol as needed Euvolemic hyponatremia, resolved: Continue to monitor BMP Hyperglycemia without diagnosis of DM: Check A1c, likely steroid-induced Elevated AST: downtrended, no abdominal symptoms CODE STATUS: Full DVT prophylaxis: Lovenox Anticipated discharge date: 24 to [address]: Home Objective - Vital Signs Vital signs: Vital Signs Temp 98.5 F 08/16/24 07:44 Pulse 73 08/16/24 07:44 Resp 17 08/16/24 07:44 BP 111/71 08/16/24 07:44 Pulse Ox 95 08/16/24 07:44 FiO2 Intake & Output 08/15/24 08/16/24 08/16/24 18:59 06:59 18:59 Intake Total 150 Output Total 1250 Balance 150 -1250 Intake: Oral 150 Output: Urine 1250 Other: Voiding Method Toilet Toilet Urinal Urinal # Voids 5 - Labs CBC & Chem 7: 08/14/24 02:52 08/14/24 02:52 Labs: Microbiology - Last 24 Hours (Table) 08/14/24 02:52 Blood Culture - Preliminary Blood 08/13/24 09:30 Blood Culture - Preliminary Blood
--- NOTE | 2024-08-16 13:49 | P.PN ---
Subjective Progress Note Date: 08/16/24 Principal diagnosis: Reason for follow-up is influenza A pneumonia and bacteremia Patient is a 69-year-old male with a past medical history of negative for asthma reflux never smoker started getting sick about 10 days ago before presenting to the hospital has been diagnosed with influenza A pneumonia with secondary bacteremia prompting this consultation. On today's evaluation that is 08/16/2024, Patient is afebrile this morning patient denies having any chest pain breathing more comfortably less short of breath on exertion and cough decreased in intensity, the patient is currently on 3 L nasal cannula oxygen, patient denies any abdominal pain no diarrhea no enrique sea no vomiting. Patient denies any lab draw today blood culture from 08/13/2024 has been negative so far Objective - Vital Signs Vital signs: Vital Signs Temp 98.5 F 08/16/24 07:44 Pulse 73 08/16/24 07:44 Resp 17 08/16/24 07:44 BP 111/71 08/16/24 07:44 Pulse Ox 95 08/16/24 07:44 FiO2 Intake & Output 08/15/24 08/16/24 08/16/24 18:59 06:59 18:59 Intake Total 150 Output Total 1250 Balance 150 -1250 Intake: Oral 150 Output: Urine 1250 Other: Voiding Method Toilet Toilet Urinal Urinal # Voids 5 - Exam GENERAL DESCRIPTION: An elderly male up in the chair in no distress RESPIRATORY SYSTEM: Unlabored breathing , decreased breath sounds at bases HEART: S1 S2 regular rate and rhythm , ABDOMEN: Soft , no tenderness EXTREMITIES: No edema feet - Labs CBC & Chem 7: 08/14/24 02:52 08/14/24 02:52 Labs: Microbiology - Last 24 Hours (Table) 08/14/24 02:52 Blood Culture - Preliminary Blood 08/13/24 09:30 Blood Culture - Preliminary Blood Assessment and Plan (1) MSSA bacteremia Current Visit: Yes Status: Acute Code(s): R78.81 - BACTEREMIA; B95.61 - METHICILLIN SUSCEP STAPH INFCT CAUSING DIS CLASSD ELSWHR SNOMED Code(s): 688957788 (2) Influenza Current Visit: Yes Status: Acute Code(s): J11.1 - FLU DUE TO UNIDENTIFIED INFLUENZA VIRUS W OTH RESP MANIFEST SNOMED Code(s): 9707889 (3) Pneumonia Current Visit: Yes Status: Acute Code(s): J18.9 - PNEUMONIA, UNSPECIFIED ORGANISM SNOMED Code(s): 520366024 Plan: 1patient with MSSA bacteremia source is likely pneumonia in this patient has been diagnosed with influenza A and very common to have Staph aureus pneumonia postacute influenza and now with evidence of bacteremia as no other obvious focus for this bacteremia. 2blood culture has been repeated, which are currently pending 3patient also tested positive for influenza and has completed 5-day course of Tamiflu 4patient slowly clinical improvement requiring less oxygen he is currently being treated with the cefazolin seem to have cleared his bacteremia should be able to get a midline and plan is for IV cefazolin on discharge last day of antibiotic should be 08/27/2024 Dictation was produced using [employer] dictation software. please excuse any grammatical, word or spelling errors. Time with Patient: Less than 30
--- NOTE | 2024-08-16 17:24 | P.CNPUL ---
History of Present Illness Consult date: 08/16/24 Requesting physician: Romi Franco Reason for consult: pneumonia, abnormal CXR/CT Chief complaint: Flulike symptoms History of present illness: D9-year-old male patient with a known history of mild intermittent chronic bronchial asthma, former smoker who has had a 1-06/23 we have history of shortness of breath cough congestion muscle aches and weakness. He tested positive for influenza A at his PCPs office however it was too late for Tamiflu. He had presented to the ER once was treated and released and then was brought back into the emergency room August 10, 2024 with hypoxemia. X-ray revealed left lower lobe and right perihilar infiltrates. White count 5.2. Hemoglobin 14.2. P latelets 273. Sodium 138. Potassium 4.2. Bicarb 26. BUN 16. Creatinine 0.8. Urine Legionella screen negative. Viral screen positive for influenza A. He is seen today in consultation on the regular medical floor. He is currently sitting up in a chair at the bedside. Awake and alert in no acute distress. Maintaining O2 saturations in the 90s on 3 L/min per nasal cannula. He states he has been feeling better every day. He was up for shower today and did have some dyspnea on exertion but recovers after a short rest. No fever or chills currently. He has been afebrile. Hemodynamically stable. Review of Systems REVIEW OF SYSTEMS: CONSTITUTIONAL: Denies any recent significant weight loss or weight gain. EYES: Denies change in vision. EARS, NOSE, MOUTH, THROAT: Denies headaches, denies sore throat. CARDIOVASCULAR: Denies chest pain, palpitations or syncopal episodes. RESPIRATORY: Positive for shortness of breath, cough, congestion no hemoptysis. GASTROINTESTINAL: Denies change in appetite, denies abdominal pain GENITOURINARY: Denies hematuria, denies infections. MUSKULOSKELETAL: Denies pain, denies swelling. INTEGUMENTARY: Denies rash, denies eczema. NEUROLOGICAL: Denies recent memory loss, no recent seizure activity. PSYCHIATRIC: Denies anxiety, denies depression. HEMATOLOGIC/LYMPHATIC: Denies anemia, denies enlarged lymph nodes. Past Medical History Past Medical History: Asthma, GERD/Reflux Additional Past Medical History / Comment(s): ARTHRITIS,"HEADACHES", SHINGLES 5 YEARS AGO,HEMORRHOIDS, HAD PNE VACINE LESS THEN 5 YEARS AGO NOT SURE OF DATE History of Any Multi-Drug Resistant Organisms: None Reported Past Surgical History: Adenoidectomy, Tonsillectomy Additional Past Surgical History / Comment(s): X4 SINUS SX, BLEPHEROPLASTY Past Anesthesia/Blood Transfusion Reactions: No Reported Reaction Past Psychological History: No Psychological Hx Reported Smoking Status: Never smoker Past Alcohol Use History: Rare Additional Past Alcohol Use History / Comment(s): SMOKE FROM AGE 17 TO AGE 19 Past Drug Use History: None Reported - Past Family History Father Family Medical History: Blood Disorder Additional Family Medical History / Comment(s): HEMOCHROMATOSIS Medications and Allergies Home Medications Medication Instructions Recorded Confirmed Type Albuterol Nebulized [Ventolin 2.5 mg INHALATION RT-Q4H PRN 08/08/24 08/10/24 History Nebulized] Albuterol Sulfate [Albuterol 2 puff INHALATION RT-QID PRN 08/08/24 08/10/24 History Sulfate Hfa] Fluticasone Propion/Salmeterol 1 puff INHALATION RT-BID 08/08/24 08/10/24 History [Advair 250-50 Diskus] predniSONE [Deltasone] 20 mg PO BID #8 tab 08/08/24 08/10/24 Rx Azithromycin [Zithromax] See Taper PO DAILY 08/10/24 08/10/24 History Fluticasone/Umeclidin/Vilanter 1 puff INHALATION RT-DAILY 08/10/24 08/10/24 History [Trelegy Ellipta 200-62.5-25] Allergies Allergy/AdvReac Type Severity Reaction Status Date / Time tobramycin Allergy Rash/Hives Verified 08/10/24 10:10 Physical Exam Vitals: Vital Signs Temp Pulse Pulse Resp BP Pulse Ox 08/16/24 14:06 98.6 F 89 18 111/69 93 L 08/16/24 07:44 98.5 F 73 17 111/71 95 08/16/24 02:57 98.5 F 78 17 116/72 94 L 08/15/24 22:04 92 08/15/24 21:33 80 17 08/15/24 19:18 98.4 F 80 17 114/70 93 L Intake and Output 08/16/24 08/16/24 08/16/24 06:59 14:59 22:59 Output Total 1250 Balance -1250 Output: Urine 1250 GENERAL EXAM: Alert, active, pleasant 69-year-old male, on 3 L nasal cannula, seen up in a chair, comfortable in no apparent distress. HEAD: Normocephalic. EYES: Normal reaction of pupils, equal size. NOSE: Clear with pink turbinates. THROAT: No erythema or exudates. NECK: No masses, no JVD. CHEST: No chest wall deformity. LUNGS: Equal air entry with few scattered rhonchi. CVS: S1 and S2 normal with no audible murmur, regular rhythm. ABDOMEN: No hepatosplenomegaly, normal bowel sounds, no guarding or rigidity. SPINE: No scoliosis or deformity SKIN: No rashes CENTRAL NERVOUS SYSTEM: No focal deficits, tone is normal in all 4 extremities. EXTREMITIES: There is no peripheral edema. No clubbing, no cyanosis. Peripheral pulses are intact. Results - Laboratory Findings CBC and BMP: 08/14/24 02:52 08/14/24 02:52 PT/INR, D-dimer PT 10.6 sec (10.0-12.5) 08/10/24 08:11 INR 0.9 (<1.2) 08/10/24 08:11 Abnormal lab findings: Abnormal Labs 08/10/24 08/10/24 08/10/24 08:11 08:11 09:37 Immature Gran # Lymphocytes # 0.3 L Eosinophils # Sodium 135 L Chloride Glucose 179 H Calcium 8.2 L AST 63 H C-Reactive Protein Total Protein 6.2 L Albumin Albumin/Globulin Ratio Influenza Type A (PCR) Detected A 08/11/24 08/12/24 08/12/24 04:17 03:29 03:29 Immature Gran # Lymphocytes # Eosinophils # 0 L Sodium Chloride Glucose 118 H Calcium 7.8 L 7.7 L AST 52 H C-Reactive Protein Total Protein 5.4 L Albumin 3.2 L Albumin/Globulin Ratio 1.45 L Influenza Type A (PCR) 08/13/24 08/13/24 08/14/24 09:30 09:30 02:52 Immature Gran # 0.06 H Lymphocytes # 0.9 L Eosinophils # 0.03 L Sodium 135 L Chloride 97 L Glucose 124 H Calcium 8.3 L AST C-Reactive Protein 2.9 H Total Protein Albumin Albumin/Globulin Ratio Influenza Type A (PCR) 08/14/24 02:52 Immature Gran # Lymphocytes # Eosinophils # Sodium Chloride Glucose Calcium 8.0 L AST C-Reactive Protein 1.70 H Total Protein Albumin Albumin/Globulin Ratio Influenza Type A (PCR) - Diagnostic Findings Chest x-ray: image reviewed Assessment and Plan Assessment: Acute hypoxic respiratory failure secondary to an acute exacerbation of mild intermittent chronic bronchial asthma complicated by influenza A. Failed outpatient treatment Acute influenza A infection MSSA bacteremia possible contamination, currently on cefazolin History of mild intermittent chronic bronchial asthma Plan: The patient was seen and evaluated Imaging, labs and medications reviewed Currently stable on 3 L nasal cannula Titrate down the FiO2 as tolerated Continue Symbicort, Spiriva, albuterol Continue prednisone taper Lovenox for DVT prophylaxis Antibiotics per ID service We will continue to follow and make further recommendations based on his clinical status I have personally seen and examined the patient, performed the documentation and the assessment and plan as written. Number of minutes spent on the visit: 20 Dictation was produced using [employer] dictation software. Please excuse any grammatical, word or spelling errors.
[2024-08-17 08:27] LABS: Basophils # (A) 0.03 X 10*3/uL (0.00-0.10); Basophils % (A) 0.4 %; Eosinophils # (A) 0.13 X 10*3/uL (0.04-0.35); Eosinophils % (A) 1.5 %; HCT 40.2 % (39.6-50.0); HGB 13.8 g/dL (13.0-17.0); Lymphocytes # (A) 1.18 X 10*3/uL (0.90-5.00); Lymphocytes % (A) 13.9 %; MCH 30.5 pg (27.0-32.0); MCHC 34.3 g/dL (32.0-37.0); MCV 88.7 FL (80.0-97.0); Mean Platelet Volume 9.7 FL (9.5-12.2); Monocytes # (A) 0.75 X 10*3/uL (0.20-1.00); Monocytes % (A) 8.8 %; NRBC Per 100 WBC 0 X 10*3/uL (0.00-0.01); Neutrophils # (A) 6.09 X 10*3/uL (1.80-7.70); Neutrophils % (A) 71.9 %; Platelet Count 394 X 10*3/uL (140-440); RBC 4.53 X 10*6/uL (4.40-5.60); RDW 11.5 % (11.5-14.5); WBC 8.48 X 10*3/uL (4.50-10.00)
[2024-08-17 08:35] LABS: Blood Urea Nitrogen 13.2 mg/dL (9.0-27.0); Glucose 86 mg/dL (70-110); Magnesium 2.1 mg/dL (1.5-2.4)
[2024-08-17 08:36] LABS: Calcium 8.2 mg/dL (8.7-10.3); Carbon Dioxide 28.6 mmol/L (21.6-31.8); Chloride 101 mmol/L (96-109); Potassium 4.7 mmol/L (3.5-5.5); Sodium 138 mmol/L (135-145)
--- NOTE | 2024-08-17 14:40 | P.PN ---
Subjective Progress Note Date: 08/17/24 69-year-old male patient with a known history of mild intermittent chronic bronchial asthma, former smoker who has had a 1-2 we have history of shortness of breath cough congestion muscle aches and weakness. He tested positive for influenza A at his PCPs office however it was too late for Tamiflu. He had presented to the ER once was treated and released and then was brought back into the emergency room August 10, 2024 with hypoxemia. X-ray revealed left lower lobe and right perihilar infiltrates. White count 5.2. Hemoglobin 14.2. Platelets 273. Sodium 138. Potassium 4.2. Bicarb 26. BUN 16. Creatinine 0.8. Urine Legionella screen negative. Viral screen positive for influenza A. He is seen today in consultation on the regular medical floor. He is currently sitting up in a chair at the bedside. Awake and alert in no acute distress. Maintaining O2 saturations in the 90s on 3 L/min per nasal cannula. He states he has been feeling better every day. He was up for shower today and did have some dyspnea on exertion but recovers after a short rest. No fever or chills currently. He has been afebrile. Hemodynamically stable. The patient is seen today August 17, 2024 in follow-up on the regular medical floor. He is currently sitting up in a chair at the bedside. Awake and alert in no acute distress. He is maintaining good O2 saturations in the 90s on 3 L/min per nasal cannula. He is afebrile. Hemodynamically stable. He is still having issues with dyspnea on minimal exertion. White count 8.4. Hemoglobin 13.8. Platelets 394. Sodium 138. Potassium 4.7. Bicarb 29. BUN 13. Creatinine 0.8. Glucose 86. He remains on Symbicort, Spiriva, albuterol. Is on cefazolin. Lovenox for DVT prophylaxis. Continued on oral prednisone. Objective - Vital Signs Vital signs: Vital Signs Temp 98.7 F 08/17/24 14:00 Pulse 82 08/17/24 14:00 Resp 18 08/17/24 14:00 BP 105/64 08/17/24 14:00 Pulse Ox 94 L 08/17/24 14:00 FiO2 Intake & Output 08/16/24 08/17/24 08/17/24 18:59 06:59 18:59 Intake Total 100 Output Total 1450 Balance -1350 Intake: Intake, IV Titration 100 Amount ceFAZolin 2 gm In Sodium 100 Chloride 0.9% 50 ml @ 100 mls/hr IVPB Q8HR [facility] Rx# :[id number] Output: Urine 1450 Other: Voiding Method Toilet Urinal # Voids 4 2 - Exam GENERAL EXAM: Alert, 69-year-old male, on 3 L nasal cannula, up in a chair, comfortable in no apparent distress. HEAD: Normocephalic. EYES: Normal reaction of pupils, equal size. NOSE: Clear with pink turbinates. THROAT: No erythema or exudates. NECK: No masses, no JVD. CHEST: No chest wall deformity. LUNGS: Equal air entry with few scattered rhonchi. CVS: S1 and S2 normal with no audible murmur, regular rhythm. ABDOMEN: No hepatosplenomegaly, normal bowel sounds, no guarding or rigidity. SPINE: No scoliosis or deformity SKIN: No rashes CENTRAL NERVOUS SYSTEM: No focal deficits, tone is normal in all 4 extremities. EXTREMITIES: There is no peripheral edema. No clubbing, no cyanosis. Perip heral pulses are intact. - Labs CBC & Chem 7: 08/17/24 03:07 08/17/24 03:07 Labs: Abnormal Lab Results - Last 24 Hours (Table) 08/17/24 08/17/24 08/17/24 Range/Units 03:07 03:07 12:09 Immature Gran # 0.30 H (0.00-0.04) X 10*3/uL D-Dimer 0.95 H (<0.60) mg/L FEU Calcium 8.2 L (8.7-10.3) mg/dL Microbiology - Last 24 Hours (Table) 08/14/24 02:52 Blood Culture - Preliminary Blood 08/13/24 09:30 Blood Culture - Preliminary Blood Assessment and Plan Assessment: Acute hypoxic respiratory failure secondary to an acute exacerbation of mild intermittent chronic bronchial asthma complicated by influenza A. Failed out patient treatment Acute influenza A infection MSSA bacteremia possible contamination, currently on cefazolin History of mild intermittent chronic bronchial asthma Plan: The patient was seen and evaluated Labs and medications reviewed Currently on 3 L nasal cannula Having dyspnea with minimal exertion Check a D-dimer May need a CT angiogram Continue Symbicort, Spiriva, albuterol Continue prednisone taper Lovenox for DVT prophylaxis Antibiotics per ID service We will continue to follow I have personally seen and examined the patient, performed the documentation and the assessment and plan as written. Number of minutes spent on the visit: 10 Dictation was produced using [employer] dictation software. Please excuse any grammatical, word or spelling errors.
--- NOTE | 2024-08-17 15:26 | P.PN ---
Subjective Progress Note Date: 08/17/24 Hospital Course: patient is a 69-year-old male with past medical history of asthma, GERD. Patient was diagnosed with flu 4 days ago. He reported to the ER 2 days ago however no beds were available and he went home on prednisone and Zithromax,, has been having progressively worsening shortness of breath, his home pulse ox showed that he was in 80s, he has associated nonproductive, had fever several days ago. He denies wheezing, his asthma is generally well-controlled, he is only on maintenance inhaler, has not used his rescue inhaler in a month. ED course: On arrival temperature 97.5, BP stable 133/97, 91 on room air, heart rate in 80s. Lab work showed no leukocytosis, stable normal hemoglobin and platelet count, sodium 135, potassium 4.3, creatinine 0.78, GFR normal, glucose elevated 179, lactate 2.0, AST elevated 63, normal ALT 31 Chest x-ray showed left lower lobe and right perihilar infiltrates, correlate for atelectasis or pneumonia. EKG showed sinus mechanism with nonspecific T wave abnormalities. QTc 394. denies smoking history He was admitted for further management of acute hypoxic respiratory failure secondary to influenza A and, superimposed community-acquired bacterial. Was started on IV ceftriaxone 2 g daily, azithromycin 500 p.o. daily, Tamiflu 75 twice daily, as well as prednisone 40 daily, continued on breathing treatment. Blood cultures showed growth of staph aureus and epidermidis, ID was consulted, she was switched to cefazolin, repeat blood cultures negative. ,. Midline was placed on 08/17, patient to complete IV cefazolin on 08/27/2024. Due to ongoing shortness of breath, hypoxia, pulmonology consulted, D-dimer ordered and came back elevated, CTA ordered and pending. Patient denies history of blood clots in the past. Subjective: Patient was seen and examined at bedside, stated that he was feeling better yesterday and today is more fatigued, shortness of breath is persistent, he gets very short of breath and tachycardic with minimal exertion Vitals Signs Reviewed. Gen: In NAD, non-toxic HEENT: normocephalic, atraumatic, hearing acuity is intant, mucous membranes moist CVS: perfusing all extremities well, no pitting edema, Respiratory: symmetric chest expansion, no accessory muscle use, GI: soft, NTTP, ND, : no suprapubic tenderness, no CVA tenderness MSK/Derm: no rashes, cyanosis Neuro: CN II-XII intact, no motor weakness, Psych: cooperative, euthymic mood, judgment and insight is intact Assessment and Plan: Acute hypoxic respiratory failure secondary to influenza A, community-acquired bacterial pneumonia elevated D-dimer Staph aureus Bacteremia -ID consulted -Cefazolin, status post midline placement 08/17 -Repeat BCx, NGTD -Completed Tamiflu -Prednisone oral 40 daily -order Echo secondary to minimal improvement, screen for pulm HTN shows mild pulm HTN -CTA chest ordered and pending -Wells score is 0 Mild intermittent asthma, not in exacerbation -Continue home Trelegy Ellipta, Advair, albuterol as needed Euvolemic hyponatremia, resolved: Continue to monitor BMP Hyperglycemia without diagnosis of DM: Check A1c, likely steroid-induced Elevated AST: downtrended, no abdominal symptoms CODE STATUS: Full DVT prophylaxis: Lovenox Anticipated discharge date: pending clinical stability Anticipated discharge place: Home Objective - Vital Signs Vital signs: Vital Signs Temp 98.7 F 08/17/24 14:00 Pulse 82 08/17/24 14:00 Resp 18 08/17/24 14:00 BP 105/64 08/17/24 14:00 Pulse Ox 94 L 08/17/24 14:00 FiO2 Intake & Output 08/16/24 08/17/24 08/17/24 18:59 06:59 18:59 Intake Total 100 Output Total 1450 Balance -1350 Intake: Intake, IV Titration 100 Amount ceFAZolin 2 gm In Sodium 100 Chloride 0.9% 50 ml @ 100 mls/hr IVPB Q8HR [facility] Rx# :[id number] Output: Urine 1450 Other: Voiding Method Toilet Urinal # Voids 4 2 - Labs CBC & Chem 7: 08/17/24 03:07 08/17/24 03:07 Labs: Abnormal Lab Results - Last 24 Hours (Table) 08/17/24 08/17/24 08/17/24 Range/Units 03:07 03:07 12:09 Immature Gran # 0.30 H (0.00-0.04) X 10*3/uL D-Dimer 0.95 H (<0.60) mg/L FEU Calcium 8.2 L (8.7-10.3) mg/dL Microbiology - Last 24 Hours (Table) 08/14/24 02:52 Blood Culture - Preliminary Blood 08/13/24 09:30 Blood Culture - Preliminary Blood
--- NOTE | 2024-08-17 16:04 | P.PN ---
Subjective Progress Note Date: 08/17/24 Principal diagnosis: Reason for follow-up is influenza A pneumonia and bacteremia Patient is a 69-year-old male with a past medical history of negative for asthma reflux never smoker started getting sick about 10 days ago before presenting to the hospital has been diagnosed with influenza A pneumonia with secondary bacteremia prompting this consultation. On today's evaluation that is 08/17/2024,the patient denies any fever or any chills, patient is breathing slightly comfortably on 3 L current oxygen, the patient denies chest pain shortness of breath cough is decreased in intensity, patient denies abdominal pain, no nausea vomiting or diarrhea. Patient did have white count of 8.48 creatinine 0.8 blood culture repeat has been negative Objective - Vital Signs Vital signs: Vital Signs Temp 99.0 F 08/17/24 07:10 Pulse 76 08/17/24 07:10 Resp 18 08/17/24 07:10 BP 111/74 08/17/24 07:10 Pulse Ox 93 L 08/17/24 07:10 FiO2 Intake & Output 08/16/24 08/17/24 08/17/24 18:59 06:59 18:59 Intake Total 100 Output Total 1450 Balance -1350 Intake: Intake, IV Titration 100 Amount ceFAZolin 2 gm In Sodium 100 Chloride 0.9% 50 ml @ 100 mls/hr IVPB Q8HR [facility] Rx# :[id number] Output: Urine 1450 Other: Voiding Method Toilet Urinal # Voids 4 2 - Exam GENERAL DESCRIPTION: An elderly male up in the chair in no distress RESPIRATORY SYSTEM: Unlabored breathing , decreased breath sounds at bases HEART: S1 S2 regular rate and rhythm , ABDOMEN: Soft , no tenderness EXTREMITIES: No edema feet - Labs CBC & Chem 7: 08/17/24 03:07 08/17/24 03:07 Labs: Abnormal Lab Results - Last 24 Hours (Table) 08/17/24 Range/Units 03:07 Immature Gran # 0.30 H (0.00-0.04) X 10*3/uL Microbiology - Last 24 Hours (Table) 08/14/24 02:52 Blood Culture - Preliminary Blood 08/13/24 09:30 Blood Culture - Preliminary Blood Assessment and Plan (1) MSSA bacteremia Current Visit: Yes Status: Acute Code(s): R78.81 - BACTEREMIA; B95.61 - METHICILLIN SUSCEP STAPH INFCT CAUSING DIS CLASSD ELSWHR SNOMED Code(s): 960494497 (2) Influenza Current Visit: Yes Status: Acute Code(s): J11.1 - FLU DUE TO UNIDENTIFIED I NFLUENZA VIRUS W OTH RESP MANIFEST SNOMED Code(s): 0370587 (3) Pneumonia Current Visit: Yes Status: Acute Code(s): J18.9 - PNEUMONIA, UNSPECIFIED ORGANISM SNOMED Code(s): 277219257 Plan: 1patient with MSSA bacteremia source is likely pneumonia in this patient has been diagnosed with influenza A and very common to have Staph aureus pneumonia postacute influenza and now with evidence of bacteremia as no other obvious focus for this bacteremia. 2blood culture has been repeated, which are so far negative 3patient also tested positive for influenza and has completed 5-day course of Tamiflu 4patient did get a midline plan is to continue with the cefazolin for 2 weeks from his negative blood cultures multiple question concern answered prescription provided to the behavioral health case manager Dictation was produced using [employer] dictation software. please excuse any grammatical, word or spelling errors. Time with Patient: Less than 30
[2024-08-17 17:55] VITALS: BMI 25.0
--- NOTE | 2024-08-17 22:24 | CT ---
EXAMINATION TYPE: CT angio chest DATE OF EXAM: 08/17/2024 COMPARISON: NONE HISTORY: Elevated D-dimer. Shortness of breath. CT DLP: 350.4 mGycm. Automated Exposure Control for Dose Reduction was Utilized. CONTRAST: CTA scan of the thorax is performed with IV Contrast, patient injected with 100 ml mL of Isovue 370, pulmonary embolism protocol. MIP Images are created on CT scanner and reviewed. FINDINGS: LUNGS: Scattered areas of groundglass opacity are seen bilaterally more prominent in the periphery an d in the lower lungs with additional areas of irregular thickened consolidation and/or atelectasis in the bilateral lower lungs. No pleural effusion or pneumothorax is seen bilaterally. MEDIASTINUM: Suboptimal study with most dense contrast in the SVC. No acute central pulmonary emboli sm. Suboptimal evaluation of peripheral segmental and subsegmental vessels. No thoracic aortic aneury sm or dissection. Some coronary artery calcification is present. No cardiomegaly or pericardial effus ion. OTHER: No additional significant abnormality is seen. IMPRESSION: 1. Suboptimal study without acute central pulmonary embolism. Cannot entirely exclude acute periphera l pulmonary embolism. 2. Bilateral multifocal groundglass opacities could reflect acute infiltrates and/or edema. There is moderate bibasilar consolidation and/or atelectasis seen. Correlate clinically. [facility], , 08/17/2024 10:22 PM
[2024-08-18 01:58] VITALS: TEMP 98.4
[2024-08-18 09:11] VITALS: BP 100/64; PULSE 71; RESP 18
--- NOTE | 2024-08-18 11:51 | P.PN ---
Subjective Progress Note Date: 08/18/24 69-year-old male patient with a known history of mild intermittent chronic bronchial asthma, former smoker who has had a 1-/2 we have history of shortness of breath cough congestion muscle aches and weakness. He tested positive for influenza A at his PCPs office however it was too late for Tamiflu. He had presented to the ER once was treated and released and then was brought back into the emergency room August 10, 2024 with hypoxemia. X-ray revealed left lower lobe and right perihilar infiltrates. White count 5.2. Hemoglobin 14.2. Platelets 273. Sodium 138. Potassium 4.2. Bicarb 26. BUN 16. Creatinine 0.8. Urine Legionella screen negative. Viral screen positive for influenza A. He is seen today in consultation on the regular medical floor. He is currently sitting up in a chair at the bedside. Awake and alert in no acute distress. Maintaining O2 saturations in the 90s on 3 L/min per nasal cannula. He states he has been feeling better every day. He was up for shower today and did have some dyspnea on exertion but recovers after a short rest. No fever or chills currently. He has been afebrile. Hemodynamically stable. The patient is seen today August 17, 2024 in follow-up on the regular medical floor. He is currently sitting up in a chair at the bedside. Awake and alert in no acute distress. He is maintaining good O2 saturations in the 90s on 3 L/min per nasal cannula. He is afebrile. Hemodynamically stable. He is still having issues with dyspnea on minimal exertion. White count 8.4. Hemoglobin 13.8. Platelets 394. Sodium 138. Potassium 4.7. Bicarb 29. BUN 13. Creatinine 0.8. Glucose 86. He remains on Symbicort, Spiriva, albuterol. Is on cefazolin. Lovenox for DVT prophylaxis. Continued on oral prednisone. The patient is seen today August 18, 2024 in follow-up on the regular medical floor. He is currently resting in bed. Awake and alert in no acute distress. Maintaining O2 saturations in the 90s on 3 L/min per nasal cannula. He is been afebrile. Hemodynamically stable. Cultures were positive for MSSA. Follow-up blood cultures revealed no growth. Dimer was 0.95. CT angiogram ruled out pulmonary embolism. There is bilateral multifocal groundglass opacities. He remains on Symbicort, albuterol, Spiriva. Continued on a prednisone taper. Remains on cefazolin. Lovenox for DVT prophylaxis. Objective - Vital Signs Vital signs: Vital Signs Temp 98.4 F 08/18/24 07:43 Pulse 71 08/18/24 07:43 Resp 18 08/18/24 07:43 BP 100/64 08/18/24 07:43 Pulse Ox 92 L 08/18/24 07:43 FiO2 Intake & Output 08/17/24 08/18/24 08/18/24 18:59 06:59 18:59 Intake Total 50 Output Total 600 Balance -550 Weight 74.843 kg Intake: Intake, IV Titration 50 Amount ceFAZolin 2 gm In Sodium 50 Chloride 0.9% 50 ml @ 100 mls/hr IVPB Q8HR [facility] Rx# :[id number] Output: Urine 600 Other: Voiding Method Toilet Urinal # Voids 2 2 - Exam GENERAL EXAM: Alert, pleasant 69-year-old male, on 3 L nasal cannula, in no apparent distress. HEAD: Normocephalic. EYES: Normal reaction of pupils, equal size. NOSE: Clear with pink turbinates. THROAT: No erythema or exudates. NECK: No masses, no JVD. CHEST: No chest wall deformity. LUNGS: Equal air entry with few scattered rhonchi. CVS: S1 and S2 normal with no audible murmur, regular rhythm. ABDOMEN: No hepatosplenomegaly, normal bowel sounds, no guarding or rigidity. SPINE: No scoliosis or deformity SKIN: No rashes CENTRAL NERVOUS SYSTEM: No focal deficits, tone is normal in all 4 extremities. EXTREMITIES: There is no peripheral edema. No clubbing, no cyanosis. Perip heral pulses are intact. - Labs CBC & Chem 7: 08/17/24 03:07 08/17/24 03:07 Labs: Abnormal Lab Results - Last 24 Hours (Table) 08/17/24 Range/Units 12:09 D-Dimer 0.95 H (<0.60) mg/L FEU Microbiology - Last 24 Hours (Table) 08/14/24 02:52 Blood Culture - Preliminary Blood 08/13/24 09:30 Blood Culture - Preliminary Blood Assessment and Plan Assessment: Acute hypoxic respiratory failure secondary to an acute exacerbation of mild intermittent chronic bronchial asthma complicated by influenza A. Failed outpatient treatment Acute influenza A infection MSSA bacteremia, currently on cefazolin History of mild intermittent chronic bronchial asthma Plan: The patient was seen and evaluated Imaging and medications reviewed Antibiotics per ID service Plan is for 2 weeks of cefazolin Cleared for discharge May need home oxygen until fully recovered Continue his home Trelegy and albuterol Complete a prednisone taper Follow-up in our office in 1 week This patient was seen independently by the pulmonary nurse practitioner add ressing pulmonary issues I have personally seen and examined the patient, performed the documentation and the assessment and plan as written. Number of minutes spent on the visit: 25 Dictation was produced using [employer] dictation software. Please excuse any grammatical, word or spelling errors.
--- NOTE | 2024-08-18 14:11 | P.DS ---
Providers Date of admission: 08/10/24 09:49 Attending physician: Andrea Garcia MD Consults: 08/13/24 09:03 Consult Physician Routine Consulting Provider: Anju Gallo Consult Reason/Comments: staph aureus bacteremia Do you want consulting provider notified?: Yes 08/16/24 10:28 Consult Physician Routine Consulting Provider: Rema Pressley Consult Reason/Comments: staph aureus pna, influenza a Do you want consulting provider notified?: Yes Primary care physician: Quang Sanders Hospital Course: Discharge Diagnosis: Acute hypoxic respiratory failure secondary to an acute exacerbation of mild intermittent chronic bronchial asthma complicated by influenza A infection, community-acquired bacterial pneumonia Influenza A infection MSSA bacteremia Hospital Course: patient is a 69-year-old male with past medical history of asthma, GERD. Patient was diagnosed with flu 4 days ago. He reported to the ER 2 days ago however no beds were available and he went home on prednisone and Zithromax,, has been having progressively worsening shortness of breath, his home pulse ox showed that he was in 80s, he has associated nonproductive, had fever several days ago. He denies wheezing, his asthma is generally well-controlled, he is only on maintenance inhaler, has not used his rescue inhaler in a month. ED course: On arrival temperature 97.5, BP stable 133/97, 91 on room air, heart rate in 80s. Lab work showed no leukocytosis, stable normal hemoglobin and platelet count, sodium 135, potassium 4.3, creatinine 0.78, GFR normal, glucose elevated 179, lactate 2.0, AST elevated 63, normal ALT 31 Chest x-ray showed left lower lobe and right perihilar infiltrates, correlate for atelectasis or pneumonia. EKG showed sinus mechanism with nonspecific T wave abnormalities. QTc 394. denies smoking history He was admitted for further management of acute hypoxic respiratory failure secondary to influenza A and, superimposed community-acquired bacterial. Was started on IV ceftriaxone 2 g daily, azithromycin 500 p.o. daily, Tamiflu 75 twice daily, as well as prednisone 40 daily, continued on breathing treatment. Blood cultures showed growth of staph aureus and epidermidis, ID was consulted, she was switched to cefazolin, repeat blood cultures negative. ,. Midline was placed on 08/17, patient to complete IV cefazolin on 08/27/2024. Due to ongoing shortness of breath, hypoxia, pulmonology consulted, D-dimer ordered and came back elevated, CTA ordered showed no PE, did reveal bilateral groundglass opacities. Patient discharged home on 08/18 on home oxygen, arranged cefazolin infusion, follow-up with ID, pulmonology Patient seen and examined at bedside Vital signs reviewed and stable. General: [nontoxic], [no distress], [appears at stated age] Derm: [warm], [dry] Head: [atraumatic], [normocephalic], [symmetric] Eyes: [EOMI], [no lid lag], [anicteric sclera] Mouth: [no lip lesion], [mucus membranes moist] Cardiovascular: [S1S2 reg], [no murmur] Lungs: [CTA bilateral], [no rhonchi, no rales] , [no accessory muscle use] Abdominal: [soft], [ nontender to palpation], [no guarding], [no appreciable organomegaly] Ext: [no gross muscle atrophy], [no edema], [no contractures] Neuro: [ CN II-XI grossly intact], [no focal neuro deficits] Psych: [Alert], [oriented], [appropriate affect] A total of 40 minutes of time were spent preparing this complex discharge summa ry. Patient was discharged on 08/18/2024. Patient Condition at Discharge: Serious Plan - Discharge Summary Discharge Rx Participant: No New Discharge Prescriptions: New predniSONE See Taper PO DAILY #30 tab Continue Fluticasone Propion/Salmeterol [Advair 250-50 Diskus] 1 puff INHALATION RT- BID Albuterol Sulfate [Albuterol Sulfate Hfa] 2 puff INHALATION RT-QID PRN PRN Reason: Shortness Of Breath Albuterol Nebulized [Ventolin Nebulized] 2.5 mg INHALATION RT-Q4H PRN PRN Reason: Shortness Of Breath Fluticasone/Umeclidin/Vilanter [Trelegy Ellipta 200-62.5-25] 1 puff INHALATION RT-DAILY Discontinued predniSONE [Deltasone] 20 mg PO BID #8 tab Azithromycin [Zithromax] See Taper PO DAILY Discharge Medication List Albuterol Nebulized [Ventolin Nebulized] 2.5 mg INHALATION RT-Q4H PRN 08/08/24 [History] Albuterol Sulfate [Albuterol Sulfate Hfa] 2 puff INHALATION RT-QID PRN 08/08/24 [History] Fluticasone Propion/Salmeterol [Advair 250-50 Diskus] 1 puff INHALATION RT-BID 08/08/24 [History] Fluticasone/Umeclidin/Vilanter [Trelegy Ellipta 200-62.5-25] 1 puff INHALATION RT-DAILY 08/10/24 [History] predniSONE See Taper PO DAILY #30 tab 08/18/24 [Rx] Follow up Appointment(s)/Referral(s): Quang Sanders MD [Primary Care Provider] - 1-2 days Rema Pressley MD [STAFF PHYSICIAN] - 08/31/24 1:00 pm [facility], [NON-STAFF] - As Needed [facility] [NON-STAFF] - As Needed (oxygen ) [facility], [REFERRING] - As Needed (Will deliver IV antibiotic this evening between 6-8p) Anju Gallo MD [STAFF PHYSICIAN] - 1 Week (office busy at time of discharge Please call to schedule appointment ) Patient Instructions/Handouts: Influenza (DC) Activity/Diet/Wound Care/Special Instructions: Please, follow-up with your primary care physician, coater operator insulation board, infectious disease specialist Discharge Disposition: HOME WITH HOME HEALTH SERVICES
--- NOTE | 2024-08-19 15:34 | P.PN ---
Subjective Progress Note Date: 08/18/24 Principal diagnosis: Reason for follow-up is influenza A pneumonia and bacteremia Patient is a 69-year-old male with a past medical history of negative for asthma reflux never smoker started getting sick about 10 days ago before presenting to the hospital has been diagnosed with influenza A pneumonia with secondary bacteremia prompting this consultation. On today's evaluation that is 08/18/2024,the patient remains to be afebrile, patient is on 3 L nasal supplemental oxygen and denies any worsening shortness of breath no chest pain and cough is decreased intensity.Patient denies having any nausea or vomiting, no abdominal pain and no diarrhea. Patient did not have a lab draw today blood culture repeat has been negative Objective - Vital Signs Vital signs: Vital Signs Temp 98.4 F 08/18/24 07:43 Pulse 71 08/18/24 07:43 Resp 18 08/18/24 07:43 BP 100/64 08/18/24 07:43 Pulse Ox 92 L 08/18/24 07:43 FiO2 Intake & Output 08/17/24 08/18/24 08/18/24 18:59 06:59 18:59 Intake Total 50 Output Total 600 Balance -550 Weight 74.843 kg Intake: Intake, IV Titration 50 Amount ceFAZolin 2 gm In Sodium 50 Chloride 0.9% 50 ml @ 100 mls/hr IVPB Q8HR [facility] Rx# :[id number] Output: Urine 600 Other: Voiding Method Toilet Urinal # Voids 2 2 - Exam GENERAL DESCRIPTION: An elderly male up in the chair in no distress RESPIRATORY SYSTEM: Unlabored breathing , decreased breath sounds at bases HEART: S1 S2 regular rate and rhythm , ABDOMEN: Soft , no tenderness EXTREMITIES: No edema feet - Labs CBC & Chem 7: 08/17/24 03:07 08/17/24 03:07 Labs: Abnormal Lab Results - Last 24 Hours (Table) 08/17/24 Range/Units 12:09 D-Dimer 0.95 H (<0.60) mg/L FEU Microbiology - Last 24 Hours (Table) 08/14/24 02:52 Blood Culture - Preliminary Blood 08/13/24 09:30 Blood Culture - Preliminary Blood Assessment and Plan (1) MSSA bacteremia Status: Acute Code(s): R78.81 - BACTEREMIA; B95.61 - METHICILLIN SUSCEP STAPH INFCT CAUSING DIS CLASSD [id number] SNOMED Code(s): 407281612 (2) Influenza Status: Acute Code(s): J11.1 - FLU DUE TO UNIDENTIFIED INFLUENZA VIRUS W OTH RESP MANIFEST SNOMED Code(s): 6726378 (3) Pneumonia Status: Acute Code(s): J18.9 - PNEUMONIA, UNSPECIFIED ORGANISM SNOMED Code(s): 142892234 Plan: 1patient with MSSA bacteremia source is likely pneumonia in this patient has been diagnosed with influenza A and very common to have Staph aureus pneumonia postacute influenza and now with evidence of bacteremia as no other obvious focus for this bacteremia. 2blood culture has been repeated, which are so far negative 3patient also tested positive for influenza and has completed 5-day course of Tamiflu 4patient did get a midline prescription for outpatient IV cefazolin has been provided to the nurse case management patient question concern has been answered we will follow-up in the office postdischarge Dictation was produced using [employer] dictation software. please excuse any gramm atical, word or spelling errors. Time with Patient: Less than 30
== END 2024-08-18 14:28 | disposition home health service (06) | DRG 177 ==
LOC: EC 07:39 → 4SSUR 09:49
PROVIDERS: ADMIT Family Medicine; ATTEND Family Medicine
PROC: 05HC33Z Insertion of Infusion Device into Left Basilic Vein, Percutaneous Approach (ICD-10-PCS; principal; 2024-08-17 09:30)
DX: J10.08 Influenza due to other identified influenza virus with other specified pneumonia (principal); J96.01 Acute respiratory failure with hypoxia; J15.211 Pneumonia due to Methicillin susceptible Staphylococcus aureus; R78.81 Bacteremia; I27.20 Pulmonary hypertension, unspecified; J45.21 Mild intermittent asthma with (acute) exacerbation; E87.1 Hypo-osmolality and hyponatremia; K21.9 Gastro-esophageal reflux disease without esophagitis; M19.90 Unspecified osteoarthritis, unspecified site; T38.0X5A Adverse effect of glucocorticoids and synthetic analogues, initial encounter; R73.9 Hyperglycemia, unspecified; R74.01 Elevation of levels of liver transaminase levels; Z79.51 Long term (current) use of inhaled steroids; Z87.891 Personal history of nicotine dependence; Z88.1 Allergy status to other antibiotic agents; Z79.899 Other long term (current) drug therapy
CPT/HCPCS: 36410; 36415; 71045; 71046; 71275; 76937; 80048; 80053; 83605; 83735; 85025; 85379; 85610; 85730; 86140; 87040; 87070; 87077; 87186; 87205; 87449; 87636; 93005; 93306; 94640; 94760; 96365; 96366; 96375; 99285